=== PATIENT | female | born 1990 | race Caucasian/White ===

== ENCOUNTER → 2020-08-03 10:11 | Outpatient (BNVA) | payer MEDICAID, SELFPAY | PROVIDERS: Visit Provider Obstetrics & Gynecology | DX: N87.0 Mild cervical dysplasia (principal); Z98.890 Other specified postprocedural states | CPT/HCPCS: 99212 ==

== ENCOUNTER → 2020-09-23 12:14 | Outpatient (BNVA) | payer MEDICAID, SELFPAY | PROVIDERS: Visit Provider Obstetrics & Gynecology | DX: N87.0 Mild cervical dysplasia (principal) | CPT/HCPCS: 99212 ==

== ENCOUNTER 2020-09-25 12:27 | Outpatient (REF) | payer MEDICAID, SELFPAY ==
[2020-09-25 12:34] VITALS: BP 122/71; PULSE 98; RESP 18; TEMP 36.8; O2SAT 100; BMI 20.4
--- NOTE | 2020-09-25 12:53 | MHC.SHP ---
Pre-Procedural Eval Section A The patient is an INPATIENT: No Changes since office visit: No Cold of Flu in the past 2 weeks, No New Medical Problems, No Changes in Medication and No Patient answered all questions The History & Physical has been completed within 30 days and I have reviewed it.: Yes Section B Chief Complaint: LINDA 1 Allergies: Allergies Allergy/AdvReac Type Severity Reaction Status Date / Time amoxicillin Allergy Rash Verified 09/23/20 12:24 Plan Diagnosis/Plan: Unchanged I have reviewed the history and physical and performed a pertinent physical examination on my patient. No changes have occurred unless specified.
--- NOTE | 2020-09-25 12:54 | PM.OP ---
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
--- NOTE | 2020-09-25 15:01 | P.OP_ITS ---
Operative Note Operative Note Date of Service: 08/28/20 Narrative: Preop diagnosis: Persistent LINDA I with Negative ECC Operation: LEEP Post op diagnosis: same Anesthesia: paracervical block Complications: none Pathology: Anterior and Posterior cervical lip QBL: minimal Procedure: The patient was put in the dorsal lithotomy position, was prepped and draped in the usual sterile fashion. A sterile speculum was inserted inside the patient vagina. Using Lugol solution the cervix with Dyed with Lugol solution to identifiy the abnormal demarcating line. 10 cc of Marcaine0.5% with epinephrine were given at 2,4 , 8, and 10 o'clock. Using a medium-size loop wire, the anterior cervical lip was excised followed by the posterior cervical lip . Hemostasis was assured using cautery and Monsel solution. All instruments were taken out of the patient's vaginal cavity. the patient t olerated the procedure well and was discharged home with the following instructions: call if temperature is above 100.4, vaginal bleeding, abdominal pain or nausea or vomiting. Follow-up in the office in 2 weeks for postop visit
== END 2020-09-25 13:40 | disposition home or self-care (01) ==
LOC: HO.MS 12:27
PROVIDERS: Visit Provider Obstetrics & Gynecology
PROC: 0UBC7ZZ Excision of Cervix, Via Natural or Artificial Opening (ICD-10-PCS; CPT 57522; principal; 2020-09-25 12:30)
DX: N87.0 Mild cervical dysplasia (principal); F32.9 Major depressive disorder, single episode, unspecified; F11.20 Opioid dependence, uncomplicated; Z87.442 Personal history of urinary calculi; F17.210 Nicotine dependence, cigarettes, uncomplicated
CPT/HCPCS: 57522; 81025; 88307; 99211

== ENCOUNTER → 2020-10-08 12:30 | Outpatient (BNVA) | payer MEDICAID, SELFPAY | PROVIDERS: Visit Provider Obstetrics & Gynecology ==

== ENCOUNTER → 2020-10-12 11:19 | Outpatient (BNVA) | payer MEDICAID, SELFPAY | PROVIDERS: Visit Provider Advanced Practice Midwife ==

== ENCOUNTER → 2021-02-02 12:51 | Outpatient (BNVA) | payer MEDICAID, SELFPAY | PROVIDERS: Visit Provider Advanced Practice Midwife | DX: Z30.46 Encounter for surveillance of implantable subdermal contraceptive (principal); Z30.016 Encounter for initial prescription of transdermal patch hormonal contraceptive device | CPT/HCPCS: 11982; 99212 ==

== ENCOUNTER 2021-09-13 09:48 | Outpatient (REF) | payer MEDICAID, SELFPAY | END 2021-09-13 09:49 | disposition home or self-care (01) | LOC: HO.LAB 09:48 | PROVIDERS: Visit Provider Internal Medicine | DX: Z20.822 Contact with and (suspected) exposure to COVID-19 (principal) | CPT/HCPCS: C9803; U0003; U0005 ==

== ENCOUNTER 2022-04-29 09:37 | Outpatient (REF) | payer MEDICAID, SELFPAY ==
[2022-04-29 16:05] LABS: CT PCR NOT DETECTED (Not Detect.); NG PCR NOT DETECTED (Not Detect.)
[2022-05-05 15:21] LABS: HPV mRNA E6/E7 rflx Not Detected (Not Detected)
== END 2022-04-29 09:38 | disposition home or self-care (01) ==
LOC: HO.LAB 09:37
PROVIDERS: Visit Provider Advanced Practice Midwife
DX: Z01.419 Encounter for gynecological examination (general) (routine) without abnormal findings (principal); Z11.51 Encounter for screening for human papillomavirus (HPV); N87.0 Mild cervical dysplasia
CPT/HCPCS: 87491; 87591; 87624; 88142

== ENCOUNTER 2022-06-15 13:36 | Outpatient (REF) | payer MEDICAID, SELFPAY | END 2022-06-15 13:37 | disposition home or self-care (01) | LOC: HO.LNP 13:36 | PROVIDERS: Visit Provider Obstetrics & Gynecology | DX: R87.610 Atypical squamous cells of undetermined significance on cytologic smear of cervix (ASC-US) (principal) | CPT/HCPCS: 57454; 88305 ==

== ENCOUNTER → 2022-08-15 14:31 | Outpatient (BNVA) | payer MEDICAID, SELFPAY | PROVIDERS: Visit Provider Obstetrics & Gynecology | DX: R87.610 Atypical squamous cells of undetermined significance on cytologic smear of cervix (ASC-US) (principal) | CPT/HCPCS: 99212 ==

== ENCOUNTER 2022-11-09 18:17 | Emergency (ER) | payer MEDICAID, SELFPAY ==
[2022-11-09 18:20] VITALS: BP 101/65; PULSE 71; RESP 18; TEMP 37.1; O2SAT 100; BMI 21.9
--- NOTE | 2022-11-09 18:25 | ED.HEATRA ---
HPI - Head Injury General Chief complaint: Head Injury Stated complaint: Dizzy due to fall, hit head Time Seen by Provider: 11/09/22 18:49 Source: patient and RN notes reviewed Mode of arrival: ambulatory Limitations: no limitations History of Present Illness HPI Narrative: This is a 23-ouck-air-female presenting today for evaluation of head injury which occurred today. Patient states that her leg was asleep and hit her posterior head on the edge of her dresser after getting up from a nap this afternoon. She believes that she cut her head where she struck her head. She denies loss of consciousness. She denies any headache or visual changes. She states that she is not on blood thinners. Denies any nausea, vomiting or neck pain. She states that when she lays down, she does feel dizzy. Complaint: head injury Onset (ago): hour(s) Mechanism of Injury: fall Place: home Loss of Consciousness: no Location of injury: occipital Radiation: none Other Injuries: none Associated symptoms: denies other symptoms Related Data Home Medications Medication Instructions Recorded Confirmed buprenorphine 8 mg-naloxone 2 mg 1.5 film buccal DAILY 07/01/20 07/01/20 sublingual film (Suboxone) Previous Rx's Medication Instructions Recorded norelgestromin 150 mcg-e.estradiol 1 patch transdermal Q7D 3 weeks #3 02/02/21 35 mcg/24 hr weekly transderm ea patch (Xulane) Allergies Allergy/AdvReac Type Severity Reaction Status Date / Time amoxicillin Allergy Rash Verified 08/15/22 14:35 Review of Systems Review of Systems: Yes all other systems are reviewed and are negative PMFSH Past Medical History Medical History Depression GERD (gastroesophageal reflux disease) H/O calculus of kidney during History of drug abuse S/P extracorporeal shock wave therapy (~2008) Smoker Surgical History H/O cystoscopy (~2007) Family History Family History Father Diabetes Mother Depression Social History Social History Cigarette Packs Per Day: 0.5 Cigarettes Per Day: 10.0 Years Smoked: 3 Advance Directives: No Advance Directives Information Provided: No Physical Exam Vital Signs: Vital Signs: Last Vital Signs Temp 98.7 F 11/09/22 18:20 Pulse 71 11/09/22 18:20 Resp 18 11/09/22 18:20 BP 101/65 11/09/22 18:20 Pulse Ox 100 11/09/22 18:20 O2 Del Method 11/09/22 18:20 BMI result Body Mass Index 21.9 Appearance: Alert. Oriented X3. No acute distress. Eyes: Pupils equal, round and reactive to light. ENT: Pharynx normal. Neck: Normal inspection. Neck supple. CVS: Normal heart rate and rhythm. Pulses normal. Respiratory: No respiratory distress. Breath sounds normal. Skin: Skin warm and dry. Normal skin color. Normal skin turgor. No rashes. Extremities: No lower extremity edema. Neuro: Oriented X 3. No motor deficit. No sensory deficit. No facial droop. Strength is 5/5 in upper and lower extremities. Finger to nose, heel to redman testing in tact. Negative Romberg test. Course Course Course Narrative: JENNIE - [id number]-female who presents today for evaluation after a head injury which occurred this afternoon. Patient states that she woke up from a nap, and stood up, and she fell and struck her head on the side of the dresser. She denies any loss of consciousness. She is not on any blood thinners. She does not have a headache and feels well. VSS in triage. Patient is stable to return to the waiting room. 185 - patient seen and re-evaluated. Patient's symptoms consistent with closed injury. Because she has no headache, nausea, vomiting, visual changes. Advised to rest over the next several days and to avoid prolonged screentime. Educated on red flags of when to return including intractable head pain, nausea, vomiting, dizziness, or any other new or worsening symptoms. Patient understands and agrees with plan. Medical Decision Making Medical Decision Making MDM Narrative: Exam is consistent with mild concussion, low clinical suspicion for ICH or severe head injury. Differential Diagnosis concussion, closed head injury, hematoma, doubt ICH, subdural hematoma, External Record Review External record reviewed: Prior outpatient labs Discharge Plan Discharge Clinical Impression: Closed head injury, Concussion without loss of consciousness Patient Disposition: Home, Self-Care Instructions: Concussion (ED), Head Injury (ED) Additional Instructions: Your symptoms are consistent with a mild concussion. Drink plenty of fluids and get plenty of rest. Avoid prolonged screentime. Watch for any new or worsening symptoms including headache, dizziness, nausea, or vomiting. Follow up with your primary care physician. If any new or worsening symptoms occur, please return for re-evaluation. Prescriptions: No Action buprenorphine-naloxone [Suboxone] 8-2 mg Film 1.5 film BUCCAL DAILY Xulane 150-35 mcg/24 hr patch weekly 1 patch transdermal Q7D 21 Days Qty: 3 5RF Stand Alone Forms: Work/School Release Interventions: ED Discharge Assessment Last Done: 11/09/22 19:12 Discharge Date/Time: 11/09/22 19:13
== END 2022-11-09 19:13 | disposition home or self-care (01) ==
LOC: HO.ED 19:12
PROVIDERS: Emergency Provider Emergency Medicine; PCP General Practice
DX: S06.0X0A Concussion without loss of consciousness, initial encounter (principal); R42 Dizziness and giddiness; W01.190A Fall on same level from slipping, tripping and stumbling with subsequent striking against furniture, initial encounter; Y93.9 Activity, unspecified; Y92.9 Unspecified place or not applicable; Y99.9 Unspecified external cause status; F17.210 Nicotine dependence, cigarettes, uncomplicated; Z79.899 Other long term (current) drug therapy; Z71.6 Tobacco abuse counseling
CPT/HCPCS: 99282

== ENCOUNTER 2023-08-04 13:01 | Outpatient (REF) | payer MEDICAID, SELFPAY ==
[2023-08-11 08:53] LABS: HPV mRNA E6/E7 rflx Not Detected (Not Detected)
== END 2023-08-04 13:02 | disposition home or self-care (01) ==
LOC: HO.LNP 13:01
PROVIDERS: PCP General Practice; Visit Provider Advanced Practice Midwife
DX: Z01.419 Encounter for gynecological examination (general) (routine) without abnormal findings (principal); Z20.2 Contact with and (suspected) exposure to infections with a predominantly sexual mode of transmission
CPT/HCPCS: 87624; 88142

== ENCOUNTER 2023-08-04 13:01 | Outpatient (AMB) | payer MEDICAID, SELFPAY ==
[2023-08-04 13:11] VITALS: BP 96/52; BMI 21.3
--- NOTE | 2023-08-04 13:11 | A.OFFVIS_ITS ---
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 Scribed for ELÍAS Macedo by Yola Cain medical information specialist, on 08/04/2023 at 1:30 pm EST Director Of Health Education Required: No Information Interpreted: non-clinical & clinical Hepatology Physician: Hepatology Physician Present (Bibi Malloryroland SO) Accompanied by: Self / Same As Patient Allergies amoxicillin Allergy (Verified 08/04/23 13:15) Rash Is last menstrual period known: Yes Last menstrual period: 07/17/23 HPI HPI Comments History of Present Illness Details She is a premenopausal woman presenting for annual exam. Doing well with no biological sciences instructor concerns. She attempts to eat healthy and stay active. She reports fatigue today. Low BP at intake. Reports has not eaten yet today. Not currently sexually active. Stopped BC patch. She is interested in possibly restarting patch or other BC option. Had IUD in the past and she got with it and states it was stuck to the placenta. Regular monthly periods. Denies vaginal itching and irritation. Denies family hx of breast, colon and ovarian cancer. Last pap smear 2021, ASCUS. Admits to tobacco use. Patient denies any contraindications to control such as migraines with aura, high blood pressure, liver disease, blood clotting disorders, DVT and PE. [facility] Medical History ASCUS of cervix with negative high risk HPV Abnormal cervical Papanicolaou smear S/P extracorporeal shock wave therapy (~2008) Smoker GERD (gastroesophageal reflux disease) Depression H/O calculus of kidney during History of drug abuse Surgical History H/O cystoscopy (~2007) Family History Father Diabetes Hypertension Mother Depression Social History Household Members: Children Housing: Apartment Alcohol intake: never Patient Tobacco Use Status: Current everyday Tobacco user Cigarette Packs Per Day: 0.5 Cigarettes Per Day: 10.0 Years Smoked: 4 Current occupational status: employed Current occupation: [employer] Sexual orientation: Straight/Heterosexual Gender identity: Female Female Reproductive History Menstrual Age of Menarche: 13 Date of last menstrual period: 07/17/23 control method: patch Total pregnancies: 6 Full term: 5 Number of Living Children: 5 Ab induced: 1 Date of last pap smear: 05/02/22 History of abnormal pap smear: Yes (Ascus) Review of Systems Const All systems reviewed & are unremarkable except as noted in HPI and below Physical Exam Vital Signs: Last Vital Signs BP 96/52 L 08/04/23 13:11 BMI result Body Mass Index 21.3 Const General: cooperative, healthy appearing, no acute distress, well developed and alert Orientation/consciousness: patient oriented x3 HEENT Head: Yes normal to inspection Eyes General: appearance normal, both eyes and all related structures Neck Neck: Yes normal visual inspection Thyroid: Thyroid normal Chest Chest palpation & inspection: normal inspection of the chest Breast/axilla inspection: normal inspection of the breasts (no puckering, dimpling, peau de orange, retraction, discharge, masses) Breast/axilla palpation: normal palpation of the breasts Resp Effort & Inspection: normal respiratory effort GI Inspection: Yes normal to inspection Palpation (GI): Soft to palpation Rectal Exam - Female: deferred General: Yes bladder normal to palpation External Female Exam: normal external appearance and normal appearance of the urethra Speculum Exam - Vagina: normal appearance of the vagina, normal palpation and normal vaginal discharge Speculum Exam - Cervix: normal appearance of the cervix and normal palpation Bimanual exam- vagina & uterus: normal bimanual exam, normal palpation, uterine size normal, bladder normal to palpation and normal palpation Bimanual Exam- Adnexa, other: normal adnexae and no masses Skin General skin exam: no rashes or lesions noted Neuro General: patient oriented x3 Cognition (Neuro): normal cognition Extrem General: Yes normal to inspection Psych Attitude: cooperative Thought process: Normal thought process present Assessment & Plan Assessment & Plan (1) Encounter for well woman exam: Code(s): Z01.419 - Encounter for gynecological examination (general) (routine) without abnormal findings Plan: Discussed: Current recommendations for pap smears per ASCCP guidelines. Breast awareness and periodic self breast exams. Maintaining a healthy lifestyle including a well balanced diet with small frequent meals and routine exercise. Patient was given some crackers in the office today, and was instructed to sit in the room until she felt better prior to leaving office. Encouraged condom use for STD prevention. Recommended using Eucerin for dry spots. All of her questions and concerns were addressed to the best of my ability. RTO in one year for AG. (2) Possible exposure to STD: Code(s): Z20.2 - Contact with and (suspected) exposure to infections with a predominantly sexual mode of transmission Plan: STD screening offered; she accepts for HIV/RPR and Hepatitis testing. (3) Abnormal cervical Papanicolaou smear: Code(s): R87.619 - Unspecified abnormal cytological findings in specimens from cervix uteri Qualifiers: Abnormal Pap type: ASC-US Qualified Code(s): R87.610 - Atypical squamous cells of undetermined significance on cytologic smear of cervix (ASC- US) (4) General counselling and advice on contraception: Code(s): Z30.09 - Encounter for other general counseling and advice on contraception Plan: D/w pt the different options of control including control pills, patches, DMPA, IUD and Nexplanon. Reviewed use, warnings and side effects of each. Handout given to patient. She will think about her options and contact office with a decision. She opts to have a rx for patches to have on hand in the meantime. Rx sent to pharmacy. She was also counseled on smoking and risks with BC. She was counseled on estrogen over the age of 35. Discussed with use of estrogen and progesterone with undiagnosed breast cancer. Some breast cancer can have positive receptors for hormones that can cause to it grow aggressively and can lead to metastatic disease and possibly be life threatening.? Can start patches within the first 5 days of her menses. Can start today since she is currently on her menses. She was instructed to go to ER if she develops loss of vision, severe headache that does not resolve, chest pain, diff breathing, abdominal pain, or severe pain or tenderness in extremity. She will call the office with any concerns. Orders: Orders HIV Ab/Ag Today Z20.2 - Contact with and (suspected) exposure to infections with a predominantly sexual mode of transmission Pap Smear Today R87.610 - Atypical squamous cells of undetermined significance on cytologic smear of cervix (ASC-US) Hepatitis C Antibody Today Z20.2 - Contact with and (suspected) exposure to infections with a predominantly sexual mode of transmission Hepatitis B Core Antibody Today Z20.2 - Contact with and (suspected) exposure to infections with a predominantly sexual mode of transmission Syphilis Screen Today Z20.2 - Contact with and (suspected) exposure to infections with a predominantly sexual mode of transmission Medications: Refilled norelgestromin-ethin.estradiol 150-35 mcg/24 hr (Xulane) 1 patch transdermal Q7D 9 ea 4RF 3 weeks Coding Level of Care Code Est Pt Prev Care [id number]) Diagnoses Encounter for well woman exam Z01.419 Possible exposure to STD Z20.2 Atypical squamous cells of undetermined significance on cytologic smear of cervix (ASC-US) R87.610 Abnormal Pap type: ASC-US General counselling and advice on contraception Z30.09
== END 2023-08-04 13:55 | disposition home or self-care (01) ==
LOC: HO.HWS 13:01
PROVIDERS: PCP General Practice; Visit Provider Advanced Practice Midwife
DX: Z01.419 Encounter for gynecological examination (general) (routine) without abnormal findings (principal); Z20.2 Contact with and (suspected) exposure to infections with a predominantly sexual mode of transmission; R87.610 Atypical squamous cells of undetermined significance on cytologic smear of cervix (ASC-US); Z30.09 Encounter for other general counseling and advice on contraception
CPT/HCPCS: 99395

== ENCOUNTER 2023-08-28 06:18 | Emergency (ER) | payer MEDICAID, SELFPAY ==
--- NOTE | ~2023-08-28 | XR_ITS ---
EXAMINATION: XR CHEST CLINICAL INFORMATION: Covid 19 positive. COMPARISON: 09/21/2019 TECHNIQUE: Frontal view of the chest was obtained. FINDINGS: The lungs are well expanded. No focal consolidation. No pleural effusion. Cardiac silhouette is within normal limits. XR/XR chest 1V IMPRESSION: No acute abnormality.
[2023-08-28 06:22] VITALS: BP 126/70; PULSE 79; RESP 18; TEMP 37.2; O2SAT 100; BMI 22.0
--- NOTE | 2023-08-28 06:36 | ED_ITS ---
HPI - General Adult General Chief complaint: General Medical Stated complaint: Covid+/Chest heaviness Time Seen by Provider: 08/28/23 06:35 Source: patient, RN notes reviewed and old records reviewed Mode of arrival: ambulatory History of Present Illness HPI narrative: 32-year-old female with past medical history of GERD, depression, substance abuse currently on Suboxone, cigarette smoker presenting to the ED complaining of COVID-19 positive on home test 2 days ago you now with congestion, myalgias, chest heaviness. Reports chest heaviness is intermittent. Denies cough, fever, SOB, travel, pedal edema. 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 Related Data Home Medications Medication Instructions Recorded Confirmed buprenorphine 8 mg-naloxone 2 mg 1.5 film buccal DAILY 07/01/20 07/01/20 sublingual film (Suboxone) Previous Rx's Medication Instructions Recorded norelgestromin 150 mcg-e.estradiol 1 patch transdermal Q7D 3 weeks #9 08/04/23 35 mcg/24 hr weekly transderm ea patch (Xulane) nirmatrelvir 300 mg (150 mg See Rx Instructions PO .COMPLEX 08/28/23 x2)-ritonavir 100 mg tablet,dose #30 ea pack (Paxlovid) Allergies Allergy/AdvReac Type Severity Reaction Status Date / Time amoxicillin Allergy Rash Verified 08/28/23 06:26 Review of Systems Review of Systems: Constitutional: No Fever, No Chills ENT/Mouth: No Ear Pain, No Nasal Congestion, No sore throat, No Rhinorrhea, No Swallowing Difficulty Cardiovascular: + Chest tightness, No SOB Respiratory: No Cough, No Sputum, No Wheezing Gastrointestinal: No Nausea, No Vomiting,No Abdominal pain Musculoskeletal: No joint pain, + Myalgias, No Joint Swelling Skin: No Skin Lesions, No rash Neuro: No Weakness, No Numbness, No Paresthesias Yes all other systems are reviewed and are negative Constitutional: Constitutional: Reports as per [facility] Past Medical History Attestation statement: The following information was validated with the patient. Source: old records reviewed Medical History ASCUS of cervix with negative high risk HPV Abnormal cervical Papanicolaou smear S/P extracorporeal shock wave therapy (~2008) Smoker GERD (gastroesophageal reflux disease) Depression H/O calculus of kidney during History of drug abuse Surgical History H/O cystoscopy (~2007) Family History Family History Father Diabetes Hypertension Mother Depression Social History Social History Household Members: Children Housing: Apartment Alcohol intake: never Patient Tobacco Use Status: Current everyday Tobacco user Cigarette Packs Per Day: 0.5 Cigarettes Per Day: 10.0 Years Smoked: 4 Advance Directives: No Advance Directives Information Provided: No Current occupational status: employed Current occupation: HOUSEKEEPER SUPERVISOR Sexual orientation: Straight/Heterosexual Gender identity: Female Physical Exam ED Vital Signs: Vital Signs - 24 hr 08/28/23 06:22 08/28/23 07:18 Temperature 99 F Pulse Rate 79 70 Respiratory Rate 18 12 Blood Pressure 126/70 103/65 Pulse Oximetry 100 100 Oxygen Delivery Method Room Air Room Air BMI result Body Mass Index 22.0 Const General: cooperative, healthy appearing and no acute distress Orientation/consciousness: patient oriented x3 Limitations: no limitations HENMT Head: Yes normal to inspection and Yes atraumatic Ears: hearing grossly normal bilaterally General nose exam: Normal external nose present Face and sinus: Yes normal facial exam Eyes General: appearance normal, both eyes and all related structures EOM: EOMs intact bilaterally Neck Neck: Yes normal visual inspection and Yes no meningeal signs Resp Effort & Inspection: normal respiratory effort and no respiratory distress Auscultation: clear to auscultation bilaterally, no rales, no rhonchi and no wheezes Cardio Rate: regular rate Heart sounds: S1 normal heart sound present and S2 normal heart sound present GI Inspection: Yes normal to inspection Palpation (GI): Soft to palpation, nontender, no guarding and not rigid Skin Rashes: no rashes Wounds: no wounds Neuro General: patient oriented x3, tone normal and no meningeal signs Cranial nerves: Yes CN's II-XII intact bilaterally Gait exam (Neuro): Normal gait present Extrem General: Yes normal to inspection Course Course Course Narrative: 912--XR chest 1V IMPRESSION: No acute abnormality. > results discussed with patient. Patient requesting Paxlovid. Discussed risks of taking medication and multiple drug interactions, patient verbalized understandign & would still like prescription. Recommended close follow-up with PCP -Results discussed with patient including worrisome signs and symptoms and strict return precautions, and when to return to the emergency department. They verbalized understanding and feel safe for discharge at this time. Medical Decision Making Medical Decision Making [facility] Narrative: 32-year-old female with past medical history of GERD, depression, substance abuse currently on Suboxone, cigarette smoker presenting to the ED complaining of COVID-19 positive on home test 2 days ago you now with congestion, myalgias, chest heaviness. On exam vital signs stable, NAD, nontoxic appearing, physical exam as noted above. Concern for viral illness/COVID-19. Lower suspicion for pneumonia/bronchitis, ACS or PE Plan: EKG, CXR, reassurance Please refer to course for remaining clinical decision making, interpretation of labs/imaging results, and discussions with consultants and/or family members. Differential Diagnosis Differential Diagnoses: The differential diagnosis associated with the presentation includes As above Admission/Observation Consideration of admission/observation: Escalation of care including admission/observation considered Lab Data [facility] Lab Attestation statement: I reviewed the patient's lab results. Independent Interpretation I performed an independent interpretation of an: EKG (My interpretation EKG normal sinus rhythm rate of 76. CA interval 160. QTC 434. No significant change when compared to prior) and Plain X-Ray Radiology Impression Discussion of test interpretation with radiology: I have reviewed the radiologist's reading. External Record Review External record reviewed: Inpatient record, Office record, Outpatient record, Prior outpatient labs, Prior outpatient radiology, Primary care record and Outside ED record Tests considered The following testing was considered but not selected: As above Prescription Management I considered prescription management with: Pain Medication and Antiviral Discharge Plan Discharge Clinical Impression: COVID-19 Patient Disposition: Home, Self-Care Instructions: COVID-19 (Coronavirus Disease 2019) (ED) Additional Instructions: YOU HAVE COVID-19 PAXLOVID CAN INCREASE BLOOD LEVELS OF YOUR SUBOXONE WHICH CAN MAKE YOU DROWSY, DIZZY, LIGHTHEADED AND HAD DIFFICULTY CONCENTRATING. IF YOU FEEL FAINT, INCREASINGLY LETHARGIC PLEASE RETURN TO THE ED IMMEDIATELY AND STOP MEDICATION. At this time you will be okay for discharge. Please self isolate for 5 days. Do not expose yourself to others. You may not go to work or school. Please continue to follow cold instructions and wash your hands frequently. You may take Tylenol / Motrin as directed on the bottle for pain or fever. If you have constant or persistent shortness of breath, fever unresolved with medications, chest pain, or your unable to eat or drink please return to the ED CDC Guidelines for home isolation: - Stay away from others - WEAR A MASK if you are sick AND STAY HOME - Cover your mouth and nose with a tissue when you cough or sneeze. Dispose of tissues in a lined trash can and wash your hands immediately with soap and water for at least 20 seconds. If soap and water are not available, clean hands with alcohol-based hand sports health club membership advisors that contains at least 60% alcohol. - Clean your hands often with soap and water for at least 20 seconds - Avoid touching your eyes, nose and mouth with unwashed hands - Do not share dishes, drinking glasses, cups, eating utensils, towels, or bedding with other people in your home. After using these items, wash them thoroughly with soap and water or put in the hardware sales assistant. - Clean high-touch surfaces in your isolation area ( sick room and bathroom) every day; let a caregiver clean and disinfect high-touch surfaces in other areas of the home. Clean the area or item with soap and water or another detergent if it is dirty. Then, use a household disinfectant. - Limit contact with pets and animals: If you must care for a pet, wash your hands before and after interacting with them) Prescriptions: New Paxlovid 300 mg (150 mg x 2)-100 mg tablets,dose pack See Rx Instructions .ROUTE .COMPLEX Qty: 30 0RF Rx Instructions: take TWO 150 mg tablets of nirmatrelvir with ONE 100 mg tablet of ritonavir twice daily for 5 days No Action buprenorphine-naloxone [Suboxone] 8-2 mg Film 1.5 film BUCCAL DAILY Xulane 150-35 mcg/24 hr patch weekly 1 patch transdermal Q7D 21 Days Qty: 9 4RF Referrals: Suzy Mondragon MD [Primary Care Provider] - Stand Alone Forms: Work/School Release
--- NOTE | 2023-08-28 06:44 | ECG_ITS ---
Test Reason : CHEST PX Blood Pressure : / mmHG Vent. Rate : 076 BPM Atrial Rate : 076 BPM P-R Int : 160 ms QRS Dur : 088 ms QT Int : 386 ms P-R-T Axes : 062 047 048 degrees QTc Int : 434 ms Normal sinus rhythm Normal ECG When compared with ECG of 18-MAR-2020 02:40, No significant change was found Referred By: Samina Daniels Electronically Signed By:Burton Leon
[2023-08-28 07:18] VITALS: BP 103/65; PULSE 70; RESP 12; O2SAT 100
[2023-08-28 09:48] VITALS: BP 112/72; PULSE 65; RESP 18; O2SAT 97
--- NOTE | 2023-08-28 09:52 | PC.NURSE ---
PT CLEARED FOR DISCHARGE. DISCHARGE INSTRUCTIONS REVIEWED WITH PT. DENIES PAIN, VSS.
== END 2023-08-28 09:52 | disposition home or self-care (01) ==
PROVIDERS: Emergency Provider Student in an Organized Health Care Education/Training Program; PCP General Practice
DX: U07.1 COVID-19 (principal); F11.20 Opioid dependence, uncomplicated; F17.210 Nicotine dependence, cigarettes, uncomplicated
CPT/HCPCS: 71045; 93005; 99283; 99284

== ENCOUNTER → 2023-08-28 06:44 | Outpatient (BNV) | payer MEDICAID, SELFPAY | PROVIDERS: Emergency Provider Student in an Organized Health Care Education/Training Program; PCP General Practice; Visit Provider Internal Medicine Cardiovascular Disease | DX: R07.9 Chest pain, unspecified (principal) | CPT/HCPCS: 93010 ==

== ENCOUNTER 2023-12-21 20:08 | Emergency (ER) | payer MEDICAID, SELFPAY ==
[2023-12-21 20:20] VITALS: BP 144/81; PULSE 69; RESP 16; TEMP 36.7; O2SAT 98; BMI 23.2
--- NOTE | 2023-12-21 20:21 | ED_ITS ---
HPI - General Adult General Chief complaint: General Medical Stated complaint: dizziness Time Seen by Provider: 12/21/23 23:04 Source: patient Mode of arrival: ambulatory Limitations: no limitations History of Present Illness HPI narrative: Patient complaining of muffled voice body aches running nose since yesterday feels lightheaded no pain in the throat no fever no chills no cough Related Data Home Medications ?Medication ?Instructions ?Recorded ?Confirmed buprenorphine 8 mg-naloxone 2 mg 1.5 film buccal DAILY 07/01/20 07/01/20 sublingual film (Suboxone) Previous Rx's ?Medication ?Instructions ?Recorded norelgestromin 150 mcg-e.estradiol 1 patch transdermal Q7D 3 weeks #9 08/04/23 35 mcg/24 hr weekly transderm ea patch (Xulane) nirmatrelvir 300 mg (150 mg See Rx Instructions PO .COMPLEX 08/28/23 x2)-ritonavir 100 mg tablet,dose #30 ea pack (Paxlovid) azithromycin 250 mg tablet 250 mg PO DAILY 4 days #4 tabs 12/21/23 (Zithromax) Allergies Allergy/AdvReac Type Severity Reaction Status Date / Time amoxicillin Allergy Rash Verified 12/21/23 20:22 Review of Systems 2 Review of Systems: Yes all other systems are reviewed and are negative PMFSH Past Medical History Medical History ASCUS of cervix with negative high risk HPV Abnormal cervical Papanicolaou smear S/P extracorporeal shock wave therapy (~2008) Smoker GERD (gastroesophageal reflux disease) Depression H/O calculus of kidney during History of drug abuse Surgical History H/O cystoscopy (~2007) Family History Family History Father Diabetes Hypertension Mother Depression Social History Social History Household Members: Children Housing: Apartment Alcohol intake: never Patient Tobacco Use Status: Current everyday Tobacco user Cigarette Packs Per Day: 0.5 Cigarettes Per Day: 10.0 Years Smoked: 4 Advance Directives: No Advance Directives Information Provided: No Current occupational status: employed Current occupation: TOUR LEADER Sexual orientation: Straight/Heterosexual Gender identity: Female Physical Exam ED Vital Signs: Vital Signs - 24 hr 12/21/23 20:20 12/21/23 22:31 Temperature 98.0 F 98.1 F Pulse Rate 69 68 Respiratory Rate 16 18 Blood Pressure 144/81 H 146/80 H Pulse Oximetry 98 98 Oxygen Delivery Method Room Air Room Air BMI result Body Mass Index 23.2 Appearance: Alert. Oriented X3. No acute distress. Orthostatics normal ENT: Pharynx normal. Oral Mucosa moist muffled voice Neck: Normal inspection. Neck supple. CVS: Normal heart rate and rhythm. Pulses normal. Respiratory: No respiratory distress. Equal air entry bilateral, no wheezing/rales/rhonchi Skin: Skin warm and dry. Normal skin color. Normal skin turgor. Extremities: No lower extremity edema. Neuro: Oriented X 3. Course Course Course Narrative: RME:?33 yo female here for eval of constant left flank pain x 1.5 days. endorses light headedness and headache that began while at the movies yesterday. denies fever, chills, N/V, diarrhea, dysuria, hematuria. labs, viral swabs, UA ordered. Full HPI, ROS and PE to be performed by the primary ED provider. Medical Decision Making Medical Decision Making [facility] Narrative: Patient has acute pharyngitis will prescribe Zithromax Differential Diagnosis Differential Diagnoses: The differential diagnosis associated with the presentation includes Laryngitis/pharyngitis/URI Lab Data [facility] Lab Attestation statement: I reviewed the patient's lab results. 12/21/23 20:28 12/21/23 20:28 Labs: Lab Results 12/21/23 Range/Units 20:28 WBC 4.3 L (4.8-10.8) X10*3/uL RBC 4.66 (4.20-5.50) X10*6/uL Hgb 12.7 (12.0-16.0) g/dl Hct 40.3 (37.0-47.0) % MCV 86.5 (80.0-98.0) fL MCH 27.3 (27.0-33.0) pg MCHC 31.5 (31.0-35.0) g/dl RDW 13.3 (11.0-16.0) % Plt Count 259 (160-400) X10*3/uL MPV 9.7 (9.4-12.3) fL Immature Gran % (Auto) 0.0 (0.0-0.4) % Neut % (Auto) 45.7 (45-73) % Lymph % (Auto) 43.5 H (20-40) % [place] % (Auto) 7.6 (2-11) % Eos % (Auto) 2.5 (0-4) % Baso % (Auto) 0.7 (0-2) % Lymph # (Auto) 1.9 (1.2-4.9) X10*3/uL [place] # (Auto) 0.3 (0.1-1.2) X10*3/uL Eos # (Auto) 0.1 (0.0-0.4) X10*3/uL Baso # (Auto) 0.0 (0.0-0.2) X10*3/uL Abs Immat Gran (auto) 0.00 (0.00-0.03) X10*3/uL Absolute Neuts (auto) 2.0 (2.0-8.3) x10*3/uL Absolute Nucleated RBC 0.000 (0.0-0.012) X10*3/uL Nucleated RBC % (auto) 0.0 (0.0-0.2) /100WBC Sodium 141 (135-145) mmol/L Potassium 3.7 (3.3-5.1) mmol/L Chloride 107 (96-108) mmol/L Carbon Dioxide 26 (22-29) mmol/L Anion Gap 12 (12-20) BUN 9 (9-16) mg/dL Creatinine 0.73 (0.5-1.4) mg/dL Estim Creat Clear Calc 93.8 Estimated GFR > 60 Random Glucose 94 (60-115) mg/dL Calcium 9.5 (8.4-10.2) mg/dL Total Bilirubin 0.4 (0.0-1.0) mg/dL AST 15 (5-31) U/L ALT 9 (0-31) U/L Alkaline Phosphatase 51 (39-117) U/L Total Protein 8.1 H (6.5-8.0) g/dL Albumin 4.4 (3.5-5.0) g/dL Urine Color Yellow Urine Appearance Clear Urine pH 7.0 (5.0-9.0) Ur Specific [place] 1.025 (1.005-1.025) Urine Protein Negative (Neg-Trace) mg/dL Urine Glucose (UA) Negative (Negative) mg/dL Urine Ketones Negative (Negative) mg/dL Urine Blood Negative (Negative) Urine Nitrite Negative (Negative) Ur Leukocyte Esterase Negative (Negative) Urine Test NEGATIVE (NEGATIVE) Influenza Type A (PCR) NEGATIVE (Negative) Influenza Type B (PCR) NEGATIVE (Negative) RSV RNA Qual (PCR) NEGATIVE (Negative) SARS-CoV-2 RNA (RT-PCR) NEGATIVE (Negative) Discharge Plan Discharge Clinical Impression: Acute laryngitis Patient Disposition: Home, Self-Care Instructions: Laryngitis (ED) Additional Instructions: Drink plenty of fluid Antibiotic as prescribed Your COVID flu and RSV negative Prescriptions: New azithromycin [Zithromax] 250 mg tablet 250 mg PO DAILY 4 Days Qty: 4 0RF Rx Instructions: start on day 2 of therapy No Action buprenorphine-naloxone [Suboxone] 8-2 mg Film 1.5 film BUCCAL DAILY Paxlovid 300 mg (150 mg x 2)-100 mg tablets,dose pack See Rx Instructions .ROUTE .COMPLEX Qty: 30 0RF Rx Instructions: take TWO 150 mg tablets of nirmatrelvir with ONE 100 mg tablet of ritonavir twice daily for 5 days Xulane 150-35 mcg/24 hr patch weekly 1 patch transdermal Q7D 21 Days Qty: 9 4RF Print Language: Mongolian
[2023-12-21 20:39] LABS: MANUAL DIFF FLAG NO
[2023-12-21 20:41] LABS: Basophils Percent Auto 0.7 % (0-2); Eosinophils Absolute Auto 0.1 X10*3/uL (0.0-0.4); Eosinophils Percent Auto 2.5 % (0-4); Hematocrit 40.3 % (37.0-47.0); Hemoglobin 12.7 g/dl (12.0-16.0); Lymphocytes Absolute Auto 1.9 X10*3/uL (1.2-4.9); Lymphocytes Percent Auto 43.5 % (20-40); Mean Corpuscular HGB Conc 31.5 g/dl (31.0-35.0); Mean Corpuscular Hemoglobin 27.3 pg (27.0-33.0); Mean Corpuscular Volume 86.5 fL (80.0-98.0); Mean Platelet Volume 9.7 fL (9.4-12.3); Monocytes Absolute Auto 0.3 X10*3/uL (0.1-1.2); Monocytes Percent Auto 7.6 % (2-11); Neutrophils Percent Auto 45.7 % (45-73); Platelet Count 259 X10*3/uL (160-400); Red Blood Count 4.66 X10*6/uL (4.20-5.50); Red Cell Distribution Width 13.3 % (11.0-16.0); White Blood Count 4.3 X10*3/uL (4.8-10.8)
[2023-12-21 20:42] LABS: Appearance Urine Clear; Color Urine Yellow; Glucose Urine UA Negative (Negative); Leukocyte Esterase Urine Negative (Negative); Nitrite Urine Negative (Negative); Specific Gravity - Urine 1.025 (1.005-1.025); UPreg QC Valid YES; Urine Blood Negative (Negative); Urine Ketones Negative (Negative); Urine Pregnancy NEGATIVE (NEGATIVE); Urine Protein Negative (Neg-Trace)
[2023-12-21 20:53] LABS: Alanine Aminotransferase 9 U/L (0-31); Albumin Level 4.4 g/dL (3.5-5.0); Alkaline Phosphatase 51 U/L (39-117); Anion Gap 12 (12-20); Aspartate Amino Transferase 15 U/L (5-31); Bilirubin Total 0.4 mg/dL (0.0-1.0); Blood Urea Nitrogen 9 mg/dL (9-16); Calcium 9.5 mg/dL (8.4-10.2); Carbon Dioxide 26 mmol/L (22-29); Chloride 107 mmol/L (96-108); Creatinine Clr Calc Pharmacy 93.8; Estimated Glomerular Filt Rate > 60; Glucose Random 94 mg/dL (60-115); Potassium 3.7 mmol/L (3.3-5.1); Sodium 141 mmol/L (135-145); Total Protein 8.1 g/dL (6.5-8.0)
[2023-12-21 21:17] LABS: Influenza A PCR NEGATIVE (Negative); Influenza B PCR NEGATIVE (Negative); Resp Syncy Virus RNA Qual PCR NEGATIVE (Negative); SARS COV2 PCR INHOUSE NEGATIVE (Negative)
[2023-12-21 22:31] VITALS: BP 146/80; PULSE 68; RESP 18; TEMP 36.7; O2SAT 98
[2023-12-21 23:31] VITALS: BP 105/61; PULSE 56
[2023-12-21 23:33] VITALS: BP 116/73; PULSE 63
[2023-12-21 23:35] VITALS: BP 106/71; PULSE 69
[2023-12-21] MEDS: Azithromycin 500 MG TABLET PO (23:45)
[2023-12-21 23:47] VITALS: BP 106/71; PULSE 69; RESP 16; TEMP 36.7; O2SAT 98
== END 2023-12-21 23:50 | disposition home or self-care (01) ==
PROVIDERS: Physician Assistant Medical; Emergency Provider Internal Medicine; PCP General Practice
DX: J04.0 Acute laryngitis (principal); R42 Dizziness and giddiness; Z79.899 Other long term (current) drug therapy; Z11.52 Encounter for screening for COVID-19; Z20.822 Contact with and (suspected) exposure to COVID-19
CPT/HCPCS: 0241U; 80053; 81003; 81025; 85025; 99283; 99284

== ENCOUNTER 2025-08-19 16:10 | Outpatient (REF) | payer MEDICAID, SELFPAY ==
--- OUTSIDE RECORDS SUMMARY | 2025-08-19 11:45 | XMS_ITS | Encounter Summary ---
Author Organization [employer] Address [address] [place] [address] [address] [place] [address] Care Team Providers Care Tenter Feeder Name Role Phone Suzy Mondragon MD Primary Care Provider [phone] Encounter Details Date Type Department Care Team (Late st Contact Info) Description 08/19/2025 11:45 AM EST Office Visit [facility] [address] [place] [address] Norah Roy MD [address] [place] [address] Acute cystitis with hematuria (Primary Dx); Dysuria; Urinary frequency Social History Tobacco Use Types Packs/Day Years Used Date Smoking Tobacco: Every Day Cigarettes Passive Smoke Exposure: Current Smokeless Tobacco: Never Alcohol Use Standard Drinks/Week Comments Not Currently 0 (1 standard drink = 0.6 oz pur e alcohol) Comments Unknown Sex and Gender Information Value Date Recorded Sex Assigned at Female 07/18/2022 10:15 AM EDT Legal Sex Female 10:15 AM EDT Gender Identity Female 07/18/2022 10:15 AM EDT Sexual Orientation Straight 07/18/2022 10 :15 AM EDT documented as of this encounter Last Filed Vital Signs Vital Sign Reading Time Taken Comments Blood Pressure 116/60 08/19/2025 12:24 PM EST Pulse 70 08/19/2025 12:24 PM EST Temperature 36.1 C (97 F) 08/19/2025 12:24 PM EST Respiratory Rate 16 08/19/2025 12:24 PM EST Oxygen Saturation - - Inhaled Oxygen Concentration - - Weight 56.5 kg (124 lb 9.6 oz) 08/19/2025 12:24 PM EST Height 162.6 cm (5' 4 ) 08/19/2025 12:24 PM EST Body Mass Index 21.39 08/19/2025 12:24 PM EST documented in this encounter Plan of Treatment Upcoming Encounters Date Type Department Care Team (Late st Contact Info) Description 10/02/2025 3:00 PM EST Office Visit [facility] [address] [place] [address] Terri Montague MD [address] [place] [address] Scheduled Orders Name Type Priority Associated Diagnoses Orde r Schedule Chlamydia/N. Gonorrhoeae RNA, TMA, Vaginal Microbiology Routine Acute cystitis with hematuria Dysuria Ordered: 08/19/2025 Bacterial Vaginosis Panel Microbiology Routine Acute cystitis with hematuria Dysuria Ordered: 08/19/2025 Culture, Urine, Routine Microbiology Routine Acute cystitis with hematuria Dysuria Ordered: 08/19/2025 documented as of this encounter Goals Goal Patient Goal Type Associated Problems Recent Progress Patient-Stated? Author Keep your medical appointments Lifestyle No Baljeet Mcpherson, RN documented as of this encounter Procedures Procedure Name Priority Date/Time Associated Diagnosis Comments POCT URINALYSIS DIPSTICK Routine 08/19/2025 1:37 PM EST Dysuria Urinary frequency documented in this encounter Results * (ABNORMAL) POCT Urinalysis (08/19/2025 1:37 PM EST) Color, UA Yellow Clarity, UA Clear Glucose, UA Negative Bilirubin, UA Negative Ketones, UA Negative Spec Grav, UA 1.025 Blood, UA Positive(A) Negative, None Detected Comment:large pH, UA 7.0 Protein, UA Many Comment:>=300 mg/dL Urobilinogen, UA 0.2 Leukocytes, UA Trace Negative, Rare, Trace, 1+ (17), 2+ (35), 3+ (70), Trace (15) Comment:small Nitrite, UA Negative Negative, None Detected Appearance, UA clear QC Media Lot # [id number] Lot# Expiration Date Urine (Urine, Random) 08/19/2025 1:37 PM EST Norah Roy MD POINT OF CARE TEST ENTER /EDIT ORDERABLES Final Result documented in this encounter Visit Diagnoses Diagnosis Acute cystitis with hematuria- Primary Dysuria Urinary frequency documented in this encounter Care Teams Tenter Feeder Relationship Specialty Start Date End Date Suzy Mondragon MD [address] [place] [id number] PCP - General Family Medicine 04/09/21 documented as of this encounter
--- OUTSIDE RECORDS SUMMARY | 2025-08-19 17:16 | XMS_ITS | Encounter Summary ---
Author Organization [employer] [facility] Address [address] [place] [id number] Care Team Providers Care Enterprise Systems Administrator Name Role Phone Suzy Mondragon MD Primary Care Provider [phone] Reason for Visit * Reason Comments Med Refill Encounter Details Date Type Department Care Team (Late st Contact Info) Description 11/09/2023 Refill [facility] [address] [place] [id number] Terri Montague MD [address] [place] [id number] Uncomplicated opioid dependence (CMS/HCC) Social History Tobacco Use Types Packs/Day Years Used Date Smoking Tobacco: Never Assessed Comments Unknown Sex and Gender Information Value Date Recorded Sex Assigned at Female 07/18/2022 10:15 AM EDT Legal Sex Female 10:15 AM EDT Gender Identity Female 07/18/2022 10:15 AM EDT Sexual Orientation Straight 07/18/2022 10 :15 AM EDT documented as of this encounter Plan of Treatment Upcoming Encounters Date Type Department Care Team (Late st Contact Info) Description 10/02/2025 3:00 PM EST Office Visit [facility] [address] [place] [phone] Terri Montague MD [address] [place] [address] documented as of this encounter Visit Diagnoses Diagnosis Uncomplicated opioid dependence (CMS/HCC) (HCC) documented in this encounter Care Teams Enterprise Systems Administrator Relationship Specialty Start Date End Date Suzy Mondragon MD [address] [place] [address] PCP - General Family Medicine 04/09/21 documented as of this encounter
--- OUTSIDE RECORDS SUMMARY | 2025-08-19 17:16 | XMS_ITS | Encounter Summary ---
Author Organization [employer] Address [address] [place] [address] Care Team Providers Care Sieve Repairer Name Role Phone Suzy Mondragon MD Primary Care Provider [phone] Reason for Visit * Reason Onset Date Comments Nurse Triage 08/18/2025 Encounter Details Date Type Department Care Team ([facility] st Contact Info) Description 08/18/2025 Telephone [facility] [address] [place] [address] Suzy Mondragon MD [address] [place] [address] Nurse Triage Social History Tobacco Use Types Packs/Day Years [...] AM EDT documented as of this encounter Miscellaneous Notes * Telephone Encounter - Patricia Kaur RN - 08/18/2025 1:58 PM EST TC placed to patient [phone] in regards to below message. Patient reports she developed UTI s/s on Monday. Patient reports foul odor, increased frequency, low back pain, difficulty initiating urinary stream, nocturia and post-void dribbling. Patient denies any fevers. Patient reports she purchased and an OTC UTI test kit at [facility] which was positive for UTI. Patient would like PCP to send rahat the pharmacy. Patient advised she would need to be seen in office and have urine tested in office to be treated for UTI. Patient verbalized understanding and accepted an appt for tomorrow 08/19/25 at 11:45am. Patient to f/u PRN. Protocol Used: Urinary Symptoms (Adult) Protocol-Based Disposition: See in Office or Video Visit Today Video visit offer not recorded Positive Triage Questions: * Side (flank) or lower back pain present * Bad or foul-smelling urine * Urinating more frequently than usual (i.e., frequency) OR new-onset of the feeling of an urgent need to urinate (i.e., urgency) * Patient wants to be seen * Urination is difficult to start (i.e., hesitancy) or straining * Dribbling (losing urine) just after finishing urination (i.e., post-void dribbling) * Has to get out of bed to urinate > 2 times a night (i.e., nocturia) * All higher-acuity triage questions were negative. Care Advice Discussed: * Reasons To Call Back - Fever occurs - Unable to urinate and bladder feels full - You become worse * Telephone Encounter - Stone Orta - 08/18/2025 1:32 PM EST Symptom: Urine Symptoms Outcome: Schedule a same-day appointment or talk to a nurse or provider today Reason: Caller denied all higher acuity questions The caller accepted this outcome. documented in this encounter Plan of Treatment Upcoming Encounters Date Type Department Care Team (Late st Contact Info) Description 10/02/2025 3:00 PM EST Office Visit [facility] MED[facility]INE [address] [place] [address] [phone] Terri Montague MD [address] [place], [place] [phone] documented as of this encounter Goals Goal Patient Goal Type Associated Problems Recent Progress Patient-Stated? Author Keep your medical appointments Lifestyle No Baljeet Mcpherson RN documented as of this encounter Visit Diagnoses Not on filedocumented in this encounter Care Teams Sieve Repairer Relationship Specialty Start Date End Date Suzy Mondragon MD [address] [place] [address] [place] [id number] PCP - General Family Medicine 04/09/21 documented as of this encounter
--- OUTSIDE RECORDS SUMMARY | 2025-08-19 17:16 | XMS_ITS | Clinical Summary ---
Author Organization [employer] Address [address] [facility] 7t [place] [address] Care Team Providers Care Landscape Supervisor Name Role Phone Suzy Mondragon MD Primary Care Provider [phone] Allergies Active Allergy Reactions Criticality Noted Date Comments Bupropion 08/15/2011 Other reaction(s): Hives / Skin Rash Medications * This document contains information received from the source organization and may not represent a complete record from that organization. omeprazole (PriLOSEC) [address] capsule Take 1 capsule by mouth at bed time. 01/03/20 20 Active fluticasone (Flonase Allergy Relief) 50 MCG/ACT nasal spray Administer 1-2 sprays into affected nostril(s) at bed time. 01/03/20 20 Active Vit-Fe Fumarate-FA ( Vitamins) 28-0.8 MG tablet Take 1 tablet by mouth in the morning. 07/19/20 21 Active famotidine (Pepcid) 20 MG tablet Take 1 tablet by mouth every 12 (twelve) hours. 02/29/20 20 Active Zafemy 150-35 MCG/24HR APPLY 1 PATCH TRANSDERMALLY EVERY 7 DAYS FOR 3 [id number] 08/07/20 23 Active Buprenorphine HCl-Naloxone HCl (Suboxone) 8-2 MG SL filmIndicatio ns:Uncomplica vikki opioid dependence (CMS/HCC) (HCC) Place 3 Film under the tongue Once per day. 84 Film 1 5 4:19 PM EST 07/29/20 25 2025 Active sulfamethoxaz ole-trimethop rim (Bactrim DS) 800-160 MG tablet Take 1 tablet by mouth 2 times daily for 5 days. 10 tablet 08/19/20 25 2024 Active Buprenorphine HCl-Naloxone HCl (Suboxone) 8-2 MG SL filmIndicatio ns:Uncomplica vikki opioid dependence ([facility]) ([facility]) Place 3 Film under the tongue Once per day. 84 Film 1 06/05/20 25 2024 Discontinued(R eorder (will not trigger notification to Pharmacy)) Active Problems Problem Noted Date Diagnosed Date Acute cystitis with hematuria 08/19/2025 Gastroesophageal reflux disease 05/19/2021 Mixed anxiety and depressive disorder 11/20/2013 Opioid dependence 07/02/2012 Encounters Date Type Department Care Team Description 08/19/2025 11:45 AM EST Office Visit [facility] [address] [place] [address] Norah oRy MD Acute cystitis with hematuria (Primary Dx); Dysuria; Urinary frequency 08/19/2025 Travel 08/18/2025 Telephone [facility] [address] [place] [address] Suzy Mondragon MD Nurse Triage 07/29/2025 Refill [facility] [address] [place] [address] Terri Montague MD Uncomplicated opioid dependence ([facility]) ([facility]) 07/04/2025 Orders Only [facility] [address] [place] [address] Suzy Mondragon MD Corneal abrasion, unspecified laterality, initial encounter (Primary Dx); Foreign body in eye, unspecified laterality, initial encounter 07/02/2025 Telephone [facility] [address] [place] [address] Suzy Mondragon MD Referral 06/05/2025 Refill [facility] [address] [place] [address] Terri Montague MD Uncomplicated opioid dependence ([facility]) 06/04/2025 Refill [facility] [address] [place] [address] Terri Montague MD Uncomplicated opioid dependence ([facility]) from Last 3 Months Immunizations Immunization Administration Dates Next Due DTaP 07/05/2013, 4,12/26/1990,06/29,03/22/1990 Hep A, Adult 12/04/2013,05/09/2012 Hep B, Adolescent or Pediatric 07/14/2005,2004,06/17/2003 IPV 02/03/1994, 1,06/29/1990,03/22 Influenza Injectable Quadriv alant Preservative Free IIV4 MDCK 05/26/2017 Influenza injectable quadriv alent IIV4 with preservative 06/06/2019,07/17/2018 Influenza, IIV3, injectable 07/06/2013 MMR 05/10/1995,02/03/1994 Moderna Covid-19 Vaccine 12+ 08/26/2021,01/29/20 21,12/29/2020 Pneumococcal Polysaccharide PPSV23 11/17/2014 TD (adult), 2 Lf tetanus tox oid, preservative free, adsorbed 06/17/2003 Tdap 07/04/2012 Varicella 07/19/2021,11/18/1996 Social History Tobacco Use Types Packs/Day Years Used Date Smoking Tobacco: Every Day Cigarettes Passive Smoke Exposure: Current Smokeless Tobacco: Never Tobacco Cessation:Ready to Q uit: Not Asked; Counseling Given: Not Answered Alcohol Use Standard Drinks/Week Comments Not Currently 0 (1 standard drink = 0.6 oz pur e alcohol) Comments Unknown Sex and Gender Information Value Date Recorded Sex Assigned at Female 07/18/2022 10:15 AM EDT Legal Sex Female 10:15 AM EDT Gender Identity Female 07/18/2022 10:15 AM EDT Sexual Orientation Straight 07/18/2022 10 :15 AM EDT Last Filed Vital Signs Vital Sign Reading Time Taken Comments Blood Pressure 116/60 08/19/2025 12:24 PM EST Pulse 70 08/19/2025 12:24 PM EST Temperature 36.1 C (97 F) 08/19/2025 12:24 PM EST Respiratory Rate 16 08/19/2025 12:24 PM EST Oxygen Saturation 100% 11/27/2023 10:30 AM EDT Inhaled Oxygen Concentration - - Weight 56.5 kg (124 lb 9.6 oz) 08/19/2025 12:24 PM EST Height 162.6 cm (5' 4 ) 08/19/2025 12:24 PM EST Body Mass Index 21.39 08/19/2025 12:24 PM EST Plan of Treatment Upcoming Encounters Date Type Department Care Team (Late st Contact Info) Description 10/02/2025 3:00 PM EST Office Visit [facility] [address] [place] [address] Terri Montague MD [address] [place] [address] Health Maintenance Due Date Last Done Comments Depression Screening 1989 SDOH Screening 1989 Disability Screening 1989 Alcohol/Substance Use Screening 2001 Family Planning (PISQ) 2004 HPV Vaccines (1 - 3-dose series) 2004 Pneumococcal Vaccine: Pediatrics (0 to 5 Years) and At-Risk Patients (6 to 49) Years (2 of 2 - PCV) 11/18/2015 11/17/2014 DTaP/Tdap/Td Vaccines (7 - Td or Tdap) 07/05/2023 07/05/2013, 07/04/2012, 06/17/2003, Additional history exists Cervical Cancer Screening 08/04/2024 HPV/Cotest 08/04/2024 08/04/2023, 04/18, 04/29/2022, Additional history exists Pap Smear 08/04/2024 08/04/2023 Tobacco Screening 01/29/2025 01/30/2024 COVID-19 Vaccine ( season) 2025 08/03/2022, 08/26/2021, 01/28/2021, Additional history exists Influenza Vaccine (#1) 2025 9, 07/17/2018, 05/26/2017, Additional history exists Zoster Vaccines (1 of 2) 2039 RSV Patients and Patients Aged 60 years or older (1 - 1-dose 75+ series) 2064 IPV Vaccines Completed 02/03/1994, 12/17, 06/29/1990, Additional history exists Hepatitis B Vaccines Completed 07/14/2005, 11/23/2004, 06/17/2003 Hepatitis A Vaccines Aged Out 12/04/2013, 05/09/20 12 No longer eligible based on patient's age to complete this topic HIV Screening Completed 07/08/2021 Hepatitis C Screening Completed 07/08/2021 HIB Vaccines Aged Out No longer eligi ble based on patient's age to complete this topic Meningococcal B Vaccine Aged Out No l onger eligible based on patient's age to complete this topic Meningococcal Vaccine Aged Out No loni prateek eligible based on patient's age to complete this topic RSV under 20 months Aged Out No longe r eligible based on patient's age to complete this topic Rotavirus Vaccines Aged Out No longer eligible based on patient's age to complete this topic Goals Goal Patient Goal Type Associated Problems Recent Progress Patient-Stated? Author Keep your medical appointments Lifestyle No Baljeet Mcpherson, head chopper Procedure Name Priority Date/Time Associated Diagnosis Comments POCT URINALYSIS DIPSTICK Routine 08/19/2025 1:37 PM EST Dysuria Urinary frequency HPV MRNA E6/E7 REFLEX TO HPV 16, 18/45 Routine 08/04/2023 2:49 PM EST PAP SMEAR Routine 08/04/2023 2:49 PM EST ZZZ HISTORICAL HEPATITIS C AB W/REFL TO HCV RNA, QN, PCR Routine 07/08/2021 9:07 AM EDT HIV 1/2 ANTIGEN/ANTIBODY, FOURTH GENERATION W/RFL Routine 07/08/2021 9:07 AM EDT from Last 3 Months or Most Recently Relevant to Health Maintenance Results * (ABNORMAL) POCT Urinalysis (08/19/2025 1:37 [...] CARE TEST ENTER /EDIT ORDERABLES Final Result * HPV mRNA E6/E7 w/Reflex to HPV Genotypes 16, 18/45 (08/04/2023 2:49 PM EST) HPV nRNA E6/E7 Not Detected Not Detected [facility] Comment:Methodology: Transcr iption-Mediated AmplificationThis assay detects E6/E7 viral messenger RNA (mRNA) from 14high-risk HPV types (16,18,31,33,35,39,45,51,52,56,58,59,66,68).Cervical sources are required for HPV testing.If a vaginal source from a patient who has had atotal hysterectomy with removal of cervix wassubmitted, please contact the testing laboratoryfor alternative testing options.For additional information, please refer tohttp://education.Velocify/faq/VNI286o1(This link if provided for information/educational purposes only.)THIS TEST WAS PERFORMED AT:[employer] [place] [phone] ACEVEDO MD HPV mRNA E6/E7 [facility] HPV 16 RNA [facility] HPV 18/45 RNA [facility] 08/04/2023 2:49 PM EST 08/08/2023 10:30 AM EST us Generic External Data Provider LAB CYTOLOGY MOLLY NGUYEN Final Result [facility] [address] [place] [phone] * Pap Smear (08/04/2023 2:49 PM EST) 08/04/2023 2:49 PM EST 08/08/2023 10:30 AM EST [facility] - 08/22/2023 7:56 AM EST ----- ------- Name: Amairani Bergman Age/Sex: 32/F : 1990 Unit#: [id number] Attend Dr: Ramona Smith CNM Re08/04/23 Status: DEP [facility] ----- ------- SPEC : [id number] RECD: 08/08/23-1030 STATUS: JEEVANTanya HAGER NUM: [id number] SHEILA: 08/04/23-14[address] [facility] [address]: Ramona Smith CNM ENTERED: 08/08/23-1203 SP TYPE: Pap Smr OT DR: Suzy Mondragon ORDERED: Pap Smear Interpretation Satisfactory for evaluation. Negative for intraepithelial lesion or malignancy. HPV mRNA E6/E7: NOT DETECTED This assay detects E6/E7 viral messenger RNA (mRNA) from 14 high-risk HPV types (16, 18, 31, 33, 35, 39, 45, 51, 52, 56, 58, 59, 66, 68) HPV testing performed by [facility] [employer], [place], [place]. See reference laboratory portion of the EMR for entire report. Clinical Information LMP: 07/14/23 Previous PAP test: 2021, ASCUS Material Received ThinPrep-Cervical Copies To: Suzy Mondragon [address] [place] [address] [address] [place], [place] [phone] ----- ------- Signed (signature on file) AGUSTIN Washington (ASCP) 08/22/23 0756 ----- ------- END OF REPORT us Generic External Data Provider LAB CYTOLOGY ORDShailesh NGUYEN Final Result [facility] [address] [place], [place] [phone] * HEPATITIS C AB W/REFL TO HCV RNA, QN, PCR (07/08/2021 9:07 AM EDT) HEPATITIS C ANTIBODY NON-REACT MARIA G NON-REACT MARIA G [facility] INDEX 0.02 <1.00 [facility] Comment: HCV antibody was non-reactive. There is no laboratory evidence of HCV infection. In most cases, no further action is required. However, if recent HCV exposure is suspected, a test for HCV RNA (test code 93577) is suggested. For additional information please refer to http://education.Velocify/faq/QHW45q7 (This link is being provided for informational/ educational purposes only.) 07/08/2021 9:07 AM EDT us Terri Montague MD HISTORICAL/NON ORDERABLE LAB S Final Result Performing Organization Address [facility] Co de Phone Number [facility] [address] * HIV 1/2 ANTIGEN/ANTIBODY,FOURTH GENERATION W/RFL (07/08/2021 9:07 AM EDT) HIV-1/2 ANTIGEN AND ANTIBODIES, 4TH GENERATION W/ REFLEX NON-REACT MARIA G NON-REACT MARIA G [facility] Comment: HIV-1 antigen and HIV-1/HIV-2 antibodies were not detected. There is no laboratory evidence of HIV infection. PLEASE NOTE: This information has been disclosed to you from records whose confidentiality may be protected by state law. If your state requires such protection, then the state law prohibits you from making any further disclosure of the information without the specific written consent of the person to whom it pertains, or as otherwise permitted by law. A general authorization for the release of medical or other information is NOT sufficient for this purpose. For additional information please refer to http://education.Rezdy.Votizen/faq/VXS463 (This link is being provided for informational/ educational purposes only.) The performance of this assay has not been clinically validated in patients less than 2 years old. 07/08/2021 9:07 AM EDT Terri Montague MD LAB BLOOD ORDERABLES Final R esult Performing Organization Address [facility] Co de Phone Number [facility] [address] from Last 3 Months or Most Recently Relevant to Health Maintenance Insurance [employer] Care Teams Landscape Supervisor Relationship Specialty Start Date End Date Suzy Mondragon MD [address] [place] [phone] PCP - General Family Medicine 04/09/21
--- OUTSIDE RECORDS SUMMARY | 2025-08-19 17:16 | XMS_ITS | Encounter Summary ---
Author Organization [employer] [facility] Address [address] [place] [address] Care Team Providers Care Seed Pelleter Name Role Phone Suzy Mondragon MD Primary Care Provider [phone] Reason for Visit * Reason Comments Med Refill Encounter Details Date Type Department Care Team (Late st Contact Info) Description 09/14/2023 Refill [facility] [address] [place] [address] Terri Montague MD [address] [place] [phone] Uncomplicated opioid dependence (CMS/HCC) Social History Tobacco [...] Description 10/02/2025 3:00 PM EST Office Visit [facility] [address] [place] [address] Terri Montague MD [address] [place] [address] documented as of this encounter Visit Diagnoses Diagnosis Uncomplicated opioid dependence (CMS/HCC) (HCC) documented in this encounter Care Teams Seed Pelleter Relationship Specialty Start Date End Date Suzy Mondragon MD [address] [place] [address] PCP - General Family Medicine 04/09/21 documented as of this encounter
--- OUTSIDE RECORDS SUMMARY | 2025-08-19 17:16 | XMS_ITS | Encounter Summary ---
Author Organization [email or web address] Address [address] [place] [address] [address] [place] [address] Care Team Providers Care Tractor Trailer Moving Van Driver Name Role Phone Suzy Mondragon MD Primary Care Provider [phone] Reason for Visit * Reason Onset Date Comments Referral 07/02/2025 Encounter Details Date Type Department Care Team ([facility] st Contact Info) Description 07/02/2025 Telephone [facility] [address] [place] [address] Suzy Mondragon MD [address] [place] [address] Referral Social History Tobacco Use Types Packs/Day Years [...] encounter Miscellaneous Notes * Telephone Encounter - Yumiko Reyes RN - 07/03/2025 12:59 PM EDT TC returned to pt. Pt. Reports she was seen on an emergency basis yesterday for a foreign body in the eye, pt. Reports eye care provider was able to remove it but pt. Had a scratched cornea and was prescribed eye drops. They informed her at the time of the visit that in order for [facility] to pay for the visit, they would need a referral to PCP. Advised pt. Request for referral with diagnosis of foreign body in eye would be [facility], pt. Agrees to plan and will f/up later next week to check status. Thank you! * Telephone Encounter - Joel Kumar - 07/02/2025 12:59 PM EDT Tc from pt requesting a referral to [facility] eye [address] [place] [address] , pt stating she has an apt today Contact pt at [phone] documented in this encounter Plan of Treatment Upcoming Encounters Date Type Department Care Team (Late st Contact Info) Description 10/02/2025 3:00 PM EST Office Visit [facility] [address] [place] [address] Terri Montague MD [address] [place] [address] documented as of this encounter Goals Goal Patient Goal Type Associated Problems Recent Progress Patient-Stated? Author Keep your medical appointments Lifestyle No Baljeet Mcpherson, TREY documented as of this encounter Visit Diagnoses Not on filedocumented in this encounter Care Teams Tractor Trailer Moving Van Driver Relationship Specialty Start Date End Date Suzy Mondragon MD [address] [place] [address] PCP - General Family Medicine 04/09/21 documented as of this encounter
--- OUTSIDE RECORDS SUMMARY | 2025-08-19 17:16 | XMS_ITS | Encounter Summary ---
Author Organization [employer] [facility] Address [address] [place] [address] Care Team Providers Care Academic Affairs Specialist Name Role Phone Suzy Mondragon MD Primary Care Provider [phone] Encounter Details Date Type Department Care Team (Late st Contact Info) Description 04/06/2023 Abstract [facility] [address] [place] [address] Suzy Mondragon MD [address] [place] [phone] Social History Tobacco Use Types Packs/Day Years [...] Description 10/02/2025 3:00 PM EST Office Visit [facility] [address] [place] [address] Terri Montague MD [address] [place] [address] documented as of this encounter Visit Diagnoses Not on filedocumented in this encounter Care Teams Academic Affairs Specialist Relationship Specialty Start Date End Date Suzy Mondragon MD [address] [place] [address] PCP - General Family Medicine 04/09/21 documented as of this encounter
--- OUTSIDE RECORDS SUMMARY | 2025-08-19 17:16 | XMS_ITS | Encounter Summary ---
Author Organization [employer] Address [address] [place] [address] 7 [place] [address] Care Team Providers Care It Desktop Support Specialist Name Role Phone Suzy Mondragon MD Primary Care Provider [phone] Reason for Referral * Consultation (STAT) - Closed Specialty Diagnoses / Procedures Referred By Contac t Referred To Contact Ophthalmology Diagnoses Corneal abrasion, unspecified laterality, initial encounter Foreign body in eye, unspecified laterality, initial encounter Suzy Mondragon MD [address] [place] [address] Phone: tel: fax: [address] [place] [address] Phone: tel: fax: Referral ID Status Reason Start Date Expiration Date V isits Requested Visits Authorized [id number] Closed Specialty Services Required 07/04/2025 07/04/2026 6 6 Encounter Details Date Type Department Care Team (Late st Contact Info) Description 07/04/2025 Orders Only [facility] [address] [place], [place] [phone] Suzy Mondragon MD [address] [place], [place] [phone] Corneal abrasion, unspecified laterality, initial encounter (Primary Dx); Foreign body in eye, unspecified laterality, initial encounter Social History Tobacco Use Types Packs/Day Years [...] Description 10/02/2025 3:00 PM EST Office Visit [facility] [address] [place] [address] Terri Montague MD [address] [place] [address] Scheduled Referrals Name Type Priority Associated Diagnoses Order Schedule Referral to Ophthalmology Outpatient Referral STAT Corneal abrasion, unspecified laterality, initial encounter Foreign body in eye, unspecified laterality, initial encounter Expected: 07/04/2025 (Approximate), Expires: 07/04/2026 documented as of this encounter Goals Goal Patient Goal Type Associated Problems Recent Progress Patient-Stated? Author Keep your medical appointments Lifestyle No Baljeet Mcpherson, RN documented as of this encounter Visit Diagnoses Diagnosis Corneal abrasion, unspecified laterality, initial encounter- Primary Foreign body in eye, unspecified laterality, initial encounter documented in this encounter Care Teams It Desktop Support Specialist Relationship Specialty Start Date End Date Suzy Mondragon MD [address] [place] [address] PCP - General Family Medicine 04/09/21 documented as of this encounter
--- OUTSIDE RECORDS SUMMARY | 2025-08-19 17:16 | XMS_ITS | Encounter Summary ---
Author Organization [employer] Address [address] [place] [address] Care Team Providers Care Intermediate Card Tender Name Role Phone Suzy Mondragon MD Primary Care Provider [phone] Reason for Visit * Reason Comments Med Refill Encounter Details Date Type Department Care Team (Late Contact Info) Description 06/05/2025 Refill [facility] MEDICINE [address] [place] [address] [phone] Terri Montague MD [address] [place] [address] [phone] Uncomplicated opioid dependence (CMS/HCC) Social History Tobacco [...] Encounters Date Type Department Care Team (Late Contact Info) Description 10/02/2025 3:00 PM EST Office Visit [facility] MEDICINE [address] [place] [address] Terri Montague MD [address] [place], [place] [phone] documented as of this encounter Goals Goal Patient Goal Type Associated Problems Recent Progress Patient-Stated? Author Keep your medical appointments Lifestyle No Baljeet Mcpherson RN documented as of this encounter Visit Diagnoses Diagnosis Uncomplicated opioid dependence (CMS/HCC) (HCC) documented in this encounter Care Teams Intermediate Card Tender Relationship Specialty Start Date End Date Suzy Mondragon MD [address] [place] [address] PCP - General Family Medicine 04/09/21 documented as of this encounter
--- OUTSIDE RECORDS SUMMARY | 2025-08-19 17:16 | XMS_ITS | Encounter Summary ---
Author Organization [employer] Address [address] [place] [address] 7 [place] [address] Care Team Providers Care Art Historian Name Role Phone Suzy Mondragon MD Primary Care Provider [phone] Encounter Details Date Type Department Care Team (Latest Contact Info) Description 08/19/2025 Travel Social History Tobacco Use Types Packs/Day Years [...] Description 10/02/2025 3:00 PM EST Office Visit [facility] MEDICINE [address] [place] [address] Terri Montague MD [address] [place] [address] documented as of this encounter Goals Goal Patient Goal Type Associated Problems Recent Progress Patient-Stated? Author Keep your medical appointments Lifestyle No Baljeet Mcpherson, RN documented as of this encounter Visit Diagnoses Not on filedocumented in this encounter Care Teams Art Historian Relationship Specialty Start Date End Date Suzy Mondragon MD [address] [place] [address] PCP - General Family Medicine 04/09/21 documented as of this encounter
--- OUTSIDE RECORDS SUMMARY | 2025-08-19 17:16 | XMS_ITS | Encounter Summary ---
Author Organization [employer] [facility] Address [address] [place] [address] Care Team Providers Care Linen Supply Load Builder Name Role Phone Suzy Mondragon MD Primary Care Provider [phone] Reason for Visit * Reason Comments Med Refill Encounter Details Date Type Department Care Team (Late st Contact Info) Description 01/04/2024 Refill [facility] MEDICINE [address] [place] [address] [phone] Rosalia Griffith MD [address] [place] [address] [phone] Uncomplicated opioid dependence (CMS/HCC) Social History Tobacco [...] Description 10/02/2025 3:00 PM EST Office Visit [facility] MEDICINE [address] [place] [address] Terri Montague MD [address] [place], [place] [phone] documented as of this encounter Visit Diagnoses Diagnosis Uncomplicated opioid dependence (CMS/HCC) (HCC) documented in this encounter Care Teams Linen Supply Load Builder Relationship Specialty Start Date End Date Suzy Mondragon MD [address] [place] [address] PCP - General Family Medicine 04/09/21 documented as of this encounter
--- OUTSIDE RECORDS SUMMARY | 2025-08-19 17:16 | XMS_ITS | Encounter Summary ---
Author Organization [employer] [facility] Address [address] [place] [address] Care Team Providers Care Home Restoration Service Supervisor Name Role Phone Suzy Mondragon MD Primary Care Provider [phone] Reason for Visit * Reason Comments Med Refill Encounter Details Date Type Department Care Team (Late st Contact Info) Description 05/25/2023 Refill [facility] MEDICINE [address] [place] [address] Terri Montague MD [address] [place] [phone] Uncomplicated opioid dependence (CMS/HCC) Social History Tobacco [...] 3:00 PM EST Office Visit [facility] MEDICINE [address] [place] [phone] Terri Montague MD [address] [place] [address] documented as of this encounter Visit Diagnoses Diagnosis Uncomplicated opioid dependence (CMS/HCC) (HCC) documented in this encounter Care Teams Home Restoration Service Supervisor Relationship Specialty Start Date End Date Suzy Mondragon MD [address] [place] [address] PCP - General Family Medicine 04/09/21 documented as of this encounter
[2025-08-19 18:34] LABS: CT PCR NOT DETECTED (Not Detect.); NG PCR NOT DETECTED (Not Detect.)
[2025-08-20 10:08] LABS: Bacterial Vaginosis PCR NEGATIVE (Negative); Candida Group PCR NOT DETECTED (Not Detect); Candida glab krusei PCR NOT DETECTED (Not Detect); Trichomonas vaginalis PCR NOT DETECTED (Not Detect)
== END 2025-08-19 16:11 | disposition home or self-care (01) ==
LOC: HO.HHCLNP 16:10
PROVIDERS: Visit Provider Internal Medicine
DX: Z20.2 Contact with and (suspected) exposure to infections with a predominantly sexual mode of transmission (principal); N30.01 Acute cystitis with hematuria; R30.0 Dysuria
CPT/HCPCS: 81515; 87086; 87088; 87186; 87491; 87591

== ENCOUNTER 2025-09-13 01:41 | Emergency (ER) | payer SELFPAY ==
--- OUTSIDE RECORDS SUMMARY | 2025-09-09 11:20 | XMS_ITS | Encounter Summary ---
Author Organization [employer] Address [address] [facility] 7 [place] [address] Care Team Providers Care Digital Marketing Executive Name Role Phone Suzy Mondragon MD Primary Care Provider [phone] Encounter Details Date Type Department Care Team (Latest Contact Info) Description 09/09/2025 11:20 AM EST Clinical Support [facility]INE [address] [place] [address] Baljeet Mcpherson RN [address] [place] [address] Uncomplicated opioid dependence (CMS/HCC) (HCC) (Primary Dx) Social History Tobacco Use Types Packs/Day Years [...] AM EDT documented as of this encounter Progress Notes * Baljeet Mcpherson RN - 09/09/2025 11:20 AM EST Patient here today for OBAT visit. Patient on current buprenorphine-naloxone dose of 24/6 mg on an 8 week schedule. Patient has been in the program for 13 years 8 months. Intake date: 12/21/11. LFTs done 12/21/23. HIV/Hep C screening done: 07/08/21 - negative. Hepatitis A/B status: immune. Smoking status: 09/19 PPD. Last PCP appt 08/19/25. Patient not enrolled in behavioral health services. MO HUMPHREYS reviewed by provider. LAST VISIT 02/20/25 POS:BUP ONLY Subjective Patient ID: Amairani Bergman is a 34 y.o. female who presents for OBAT. Amairani is being seen for OBAT services. She is maintaining abstinence on Suboxone with no cravings or med side effects. Very busy with work and family. Has three boys in high school and one in middle school. Mood is good. Denies depression or anxiety. Her only day off is Monday. Doesn't want to switch clinics and I told her we don't have to make a decision about that right now. TODAY 09/09/25 +bup, thc Amairani is here to citrus picker refill after missing last appointment. Apologetic for missing appointment, she has been working a lot and moved recently into a 4 bedroom apartment with her 4 boys. Reports she used a little marijuana a couple days ago for stress relief, does not use regularly. Doing well on Suboxone. No concerns today. Plan: Buprenorphine-naloxone dosing schedule of 24/6 mg daily and management of side effects reviewed. Recovery support, risk reduction (including Narcan), and behavioral health attendance reviewed. Appointment for 10/02/25 given. Patient expressed understanding and agreement with continuing plan of care. This information has been disclosed to you from records protected by federal confidentiality rules (42 CFR Part 2). The federal rules prohibit you from making any further disclosure of information inthis record that identifies a patient as having or having had a substance use disorder either directly, by reference to publicly available information, or through verification of such identification by another person unless further disclosure is expressly permitted by the written consent of the individual whose information is being disclosed or as otherwise permitted by (see2.3.1). The federal rules restrict any use of the information to investigate or prosecute with regard to a crime any patient with a substance use disorder, except as provided at 2.12??(5) and 2.65. documented in this encounter Plan of Treatment Upcoming Encounters Date Type Department Care Team (Late st Contact Info) Description 10/02/2025 3:00 PM EST Office Visit [facility] [address] [place] [address] Terri Montague MD [address] [place] [address] documented as of this encounter Goals Goal Patient Goal Type Associated Problems Recent Progress Patient-Stated? Author Keep your medical appointments Lifestyle No Baljeet Mcpherson, TREY documented as of this encounter Procedures Procedure Name Priority Date/Time Associated Diagnosis Comments POCT MARY-14 URINE DRUG SCREEN Routine 09/09/2025 12:32 PM EST Uncomplicated opioid dependence (CMS/HCC) (HCC) documented in this encounter Results * (ABNORMAL) POCT MARY-14 Urine Drug Screen (09/09/2025 12:32 PM EST) Amphetamine Screen, Urine Negative Negative Barbiturate Screen, Urine Negative Negative Buprenophine Screen, Urine Positive(A) Negative Benzodiazepines Screen, Urine Negative Negative Cocaine Screen, Urine Negative Negative Fentanyl, Urine Negative Negative MDMA Urine Negative Negative ng/mL Methamphetamine Screen Urine Negative Negative Opiate Screen, Urine Negative Negative Methadone Screen, Urine Negative Negative Oxycodone Screen, Urine Negative Negative Phencyclidine (PCP), Urine Negative Negative TCA, Urine Negative Negative THC Positive(A) Negative Urine Urine specimen obtained by clean catch procedure / Unknown 09/09/2025 12:32 PM EST us Reyes Jewell MD POINT OF CARE TEST ENTER/EDIT ORDERABLES Final Result documented in this encounter Visit Diagnoses Diagnosis Uncomplicated opioid dependence (CMS/HCC) (HCC)- Primary documented in this encounter Care Teams Digital Marketing Executive Relationship Specialty Start Date End Date Suzy Mondragon MD [address] [place] [address] PCP - General Family Medicine 04/09/21 documented as of this encounter
[2025-09-13 01:45] VITALS: BP 119/64; PULSE 94; RESP 16; TEMP 36.3; O2SAT 99; BMI 21.3
--- NOTE | 2025-09-13 01:45 | ED_ITS ---
HPI - Female Genitourinary General Stated complaint: irritation when urinating Related Data Home Medications ?Medication ?Instructions ?Recorded ?Confirmed buprenorphine 8 mg-naloxone 2 mg 1.5 film buccal DAILY 07/01/20 07/01/20 sublingual film (Suboxone) Previous Rx's ?Medication ?Instructions ?Recorded norelgestromin 150 mcg-e.estradiol 1 patch transdermal Q7D 3 weeks #9 08/04/23 35 mcg/24 hr weekly transderm ea patch (Xulane) nirmatrelvir 300 mg (150 mg See Rx Instructions PO .CO MPLEX 08/28/23 x2)-ritonavir 100 mg tablet,dose #30 ea pack (Paxlovid) azithromycin 250 mg tablet 250 mg PO DAILY 4 days #4 t abs 12/21/23 (Zithromax) Allergies Allergy/AdvReac Type Severity Reaction Status Date / Time amoxicillin Allergy Rash Verified 09/13/25 01:46 PMFSH Past Medical History Medical History ASCUS of cervix with negative high risk HPV Abnormal cervical Papanicolaou smear S/P extracorporeal shock wave therapy (~2008) Smoker GERD (gastroesophageal reflux disease) Depression H/O calculus of kidney during History of drug abuse Surgical History H/O cystoscopy (~2007) Family History Family History Father Diabetes Hypertension Mother Depression Social History Social History Household Members: Children Housing: Apartment Alcohol intake: never Patient Tobacco Use Status: Current everyday Tobacco user Cigarette Packs Per Day: 0.5 Cigarettes Per Day: 10.0 Years Smoked: 4 Current occupational status: employed 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 Has a history of BV and feels similar. Has appt with gynecology on 09/15. LMP 2 weeks ago. Would like STI testing. VSS Will obtain BV panel, CT NG urine, UA, ur preg Discharge Plan Discharge Prescriptions: No Action buprenorphine-naloxone [Suboxone] 8-2 mg Film 1.5 film BUCCAL DAILY azithromycin [Zithromax] 250 mg tablet 250 mg PO DAILY 4 Days Qty: 4 0RF Rx Instructions: start on day 2 of therapy Paxlovid 300 mg (150 mg x 2)-100 mg tablets,dose pack See Rx Instructions .ROUTE .COMPLEX Qty: 30 0RF Rx Instructions: take TWO 150 mg tablets of nirmatrelvir with ONE 100 mg tablet of ritonavir twice daily for 5 days Xulane 150-35 mcg/24 hr patch weekly 1 patch transdermal Q7D 21 Days Qty: 9 4RF Print Language: Algerian
[2025-09-13 02:20] LABS: Appearance Urine Clear; Glucose Urine UA Negative (Negative); PH 5.5 (5.0-9.0); Specific Gravity - Urine 1.025 (1.005-1.025); UMIC TRIGGER UACC YES
--- OUTSIDE RECORDS SUMMARY | 2025-09-13 02:21 | XMS_ITS | Encounter Summary ---
Author Organization [employer] [facility] Address [address] [place] [address] Care Team Providers Care Pharmacist Helper Name Role Phone Suzy Mondragon MD Primary Care Provider [phone] Reason for Visit * Reason Comments Med Refill Encounter Details Date Type Department Care Team (Late st Contact Info) Description 11/09/2023 Refill [facility] MEDICINE [address] [place] [address] Terri Montague MD [address] [place] [phone] Uncomplicated opioid dependence (CMS/HCC) Social History Tobacco [...] Description 10/02/2025 3:00 PM EST Office Visit [facility] MEDICINE [address] [place] [address] Terri Montague MD [address] [place] [phone] documented as of this encounter Visit Diagnoses Diagnosis Uncomplicated opioid dependence (CMS/HCC) (HCC) documented in this encounter Care Teams Pharmacist Helper Relationship Specialty Start Date End Date Suzy Mondragon MD [address] [place] [address] PCP - General Family Medicine 04/09/21 documented as of this encounter
--- OUTSIDE RECORDS SUMMARY | 2025-09-13 02:21 | XMS_ITS | Encounter Summary ---
Author Organization [employer] [facility] Address [address] [place] [address] Care Team Providers Care Clinical Nursing Professor Name Role Phone Suzy Mondragon MD Primary Care Provider Reason for Visit * Reason Comments Med Refill Encounter Details Date Type Department Care Team (Late st Contact Info) Description 01/04/2024 Refill [facility] MEDICINE [address] [place], [place] [phone] Rosalia Griffith MD [address] [place] [address] [phone] Uncomplicated opioid dependence (CMS/[facility]) Social History Tobacco Use Types Packs/Day Years [...] Description 10/02/2025 3:00 PM EST Office Visit [facility] MEDICINE [address] [place], [place] [phone] Terri Montague MD [address] [place], [place] [phone] documented as of this encounter Visit Diagnoses Diagnosis Uncomplicated opioid dependence (CMS/HCC) (HCC) documented in this encounter Care Teams Clinical Nursing Professor Relationship Specialty Start Date End Date Suzy Mondragon MD [address] [place] [address] PCP - General Family Medicine 04/09/21 documented as of this encounter
--- OUTSIDE RECORDS SUMMARY | 2025-09-13 02:21 | XMS_ITS | Encounter Summary ---
Author Organization [employer] Address [address] [place] [address] 7 [place] [address] Care Team Providers Care Olive Grower Name Role Phone Suzy Mondragon MD Primary Care Provider [phone] Encounter Details Date Type Department Care Team ([facility] st Contact Info) Description 08/26/2025 Results Follow-Up [facility] MEDICINE [address] [place] [address] Norah Roy MD [address] [place] [address] POCT Urinalysis, Chlamydia/N. Gonorrhoeae RNA, TMA, Vaginal, Bacterial Vaginosis Panel, Culture, Urine, Routine Social History Tobacco Use Types Packs/Day Years [...] as of this encounter Miscellaneous Notes * Result Encounter Note - Norah Roy MD - 08/26/2025 9:32 AM EST UxCx reviewed patient had E.Coli contaminated urine, patient was prescribed Bactrim, no need for addtl prescription. documented in this encounter Plan of Treatment Upcoming Encounters Date Type Department Care Team (Late st Contact Info) Description 10/02/2025 3:00 PM EST Office Visit [facility] MEDICINE [address] [place], [place] [phone] Terri Montague MD [address] [place], [place] [phone] documented as of this encounter Goals Goal Patient Goal Type Associated Problems Recent Progress Patient-Stated? Author Keep your medical appointments Lifestyle No Baljeet Mcpherson, RN documented as of this encounter Visit Diagnoses Not on filedocumented in this encounter Care Teams Olive Grower Relationship Specialty Start Date End Date Suzy Mondragon MD [address] [place], [place] [phone] PCP - General Family Medicine 04/09/21 documented as of this encounter
--- OUTSIDE RECORDS SUMMARY | 2025-09-13 02:21 | XMS_ITS | Clinical Summary ---
Author Organization [employer] Address [address] [facility] 7 [place] [address] Care Team Providers Care Roving Technician Name Role Phone Suzy Mondragon MD Primary Care Provider [phone] Allergies Active Allergy Reactions Criticality Noted Date Comments Bupropion 08/15/2011 Other reaction(s): Hives / Skin Rash Medications * This document contains information received from the source organization and may not represent a complete record from that organization. omeprazole (PriLOSEC) [address] capsule Take 1 capsule by mouth at bed time. 0 Active fluticasone (Flonase Allergy Relief) 50 MCG/ACT nasal spray Administer 1-2 sprays into affected nostril(s) at bed time. 0 Active Vit-Fe Fumarate-FA ( Vitamins) 28-0.8 MG tablet Take 1 tablet by mouth in the morning. 1 Active famotidine (Pepcid) 20 MG tablet Take 1 tablet by mouth every 12 (twelve) hours. 0 Active Zafemy 150-35 MCG/24HR APPLY 1 PATCH TRANSDERMALLY EVERY 7 DAYS FOR 3 [id number] 3 Active Buprenorphine HCl-Naloxone HCl (Suboxone) 8-2 MG SL filmIndication s:Uncomplicate d opioid dependence (CMS/HCC) (HCC) Place 3 Film under the tongue Once per day. 84 Film 1 09/09/2025 12:39 PM EST 5 026 Active sulfamethoxazo le-trimethopri m (Bactrim DS) 800-160 MG tablet Take 1 tablet by mouth 2 times daily for 5 days. 10 tablet 025 Active Problems Problem Noted Date Diagnosed Date Acute cystitis with hematuria 08/19/2025 Assessment & Plan (08/26/2025 9:30 AM EST): - Urinary tract infection diagnosed, likely acute cystitis. - Prescribed Bactrim for 5 days, one tablet in the morning and one at night. Recommended increased fluid intake and cranberry juice. Sent urine for culture to confirm infection and guide antibiotic therapy. Gastroesophageal reflux disease 05/19/2021 Mixed anxiety and depressive disorder 11/20/2013 Opioid dependence 07/02/2012 Encounters Date Type Department Care Team Description 09/09/2025 11:20 AM EST Clinical Support [address] [address] Baljeet Mcpherson RN Uncomplicated opioid dependence ([facility]) ([facility]) (Primary Dx) 08/26/2025 Results Follow-Up [address] [address] Norah Roy MD POCT Urinalysis, Chlamydia/N. Gonorrhoeae RNA, TMA, Vaginal, Bacterial Vaginosis Panel, Culture, Urine, Routine 08/19/2025 11:45 AM EST Office Visit [address] [address] Norah Roy MD Acute cystitis with hematuria (Primary Dx); Dysuria; Urinary frequency 08/19/2025 Travel 08/18/[address] [address] Suzy Mondragon MD Nurse Triage 07/29/[address] [address] Terri Montague MD Uncomplicated opioid dependence ([facility]) (HCC) 07/04/2025 Orders Only [address] [address] Suzy Mondragon MD Corneal abrasion, unspecified laterality, initial encounter (Primary Dx); Foreign body in eye, unspecified laterality, initial encounter 07/02/[address] [place] [address] Suzy Mondragon MD Referral from Last 3 Months Immunizations Immunization Administration [...] Description 10/02/2025 3:00 PM EST Office Visit [facility] [address] [place] [address] Terri Montague MD [address] [place], [place] [phone] Health Maintenance Due Date Last Done Comments [...] your medical appointments Lifestyle No Baljeet Mcpherson, help desk administrator Procedure Name Priority Date/Time Associated Diagnosis Comments POCT MARY-14 URINE DRUG SCREEN Routine 09/09/2025 12:32 PM EST Uncomplicated opioid dependence (CMS/HCC) (HCC) CULTURE, URINE, ROUTINE Routine 08/19/2025 2:01 PM EST Acute cystitis with hematuria Dysuria BACTERIAL VAGINOSIS PANEL Routine 08/19/2025 2:01 PM EST Acute cystitis with hematuria Dysuria CHLAMYDIA/N. GONORRHOEAE RNA, TMA, UROGENITAL Routine 08/19/2025 2:01 PM EST Acute cystitis with hematuria Dysuria POCT URINALYSIS DIPSTICK Routine 08/19/2025 1:37 PM [...] to Health Maintenance Results * (ABNORMAL) POCT MARY-14 Urine Drug [...] OF CARE TEST ENTER/EDIT ORDERABLES Final Result * Bacterial Vaginosis Panel (08/19/2025 2:01 PM EST) TRICHOMONAS VAGINALIS DETECTION BY PCR NOT DETECTED Not Detect [facility] BACTERIAL VAGINOSIS DETECTION BY PCR NEGATIVE Negative [facility] Comment:The BV organism targ ets of the Xpert Xpress MVP test can becommensal in women; Xpert Xpress MVP positive results forbacterial vaginosis should be considered in conjunction withother clinical and patient information to determine thedisease status. Organisms that are not detected by the XpertXpress MVP test have also been reported to be associatedwith BV and aerobic vaginitis.The Xpert Xpress MVP test performance has not been evaluatedin patients under the age of 14. LALY GROUP DETECTION BY PCR NOT DETECTED Not Detect [facility] Laly glab krusei PCR NOT DETECTED Not Detect [facility] Swab Vaginal structure / Unknown 08/19/2025 2:01 PM EST 08/19/2025 4:12 PM EST Norah Roy MD LAB MICROBIOLOGY - GENER AL ORDERABLES Final Result [facility] [address] [place] [phone] [phone] * Chlamydia/N. Gonorrhoeae RNA, TMA, Vaginal (08/19/2025 2:01 PM EST) CT PCR NOT DETECTED Not Detect. [facility] Comment:A not detected test result does not exclude the possibilityof infection because test results can be affected byimproper specimen collection, concurrent antibiotic therapy,or the number of organisms in the specimen which may bebelow the sensitivity of the test. As with many diagnostictests, results from the Xpert CT/NG assay should beinterpreted in conjunction with other laboratory andclinical data available to the clinician.Xpert CT/NG performance has not been evaluated in patientsless than 14 years of age. The assay should not be used forthe evaluationof suspected sexual abuse or for other medico-legalindications. Additional testing is recommended in anycircumstance when false positive or false negative resultscould lead to adverse medical, social or psychologicalconsequences. NG PCR NOT DETECTED Not Detect. [facility] Comment:A not detected test result does not exclude the possibilityof infection because test results can be affected byimproper specimen collection, concurrent antibiotic therapy,or the number of organisms in the specimen which may bebelow the sensitivity of the test. As with many diagnostictests, results from the Xpert CT/NG assay should beinterpreted in conjunction with other laboratory andclinical data available to the clinician.Xpert CT/NG performance has not been evaluated in patientsless than 14 years of age. The assay should not be used forthe evaluationof suspected sexual abuse or for other medico-legalindications. Additional testing is recommended in anycircumstance when false positive or false negative resultscould lead to adverse medical, social or psychologicalconsequences. Swab (Vaginal Swab) 08/19/2025 2:01 PM EST 08/19/2025 4:12 PM EST us Norah Roy MD LAB MICROBIOLOGY - GENER AL ORDERABLES Final Result Performing Organization Address [facility] Co de Phone Number [facility] [address] [place] [phone] * Culture, Urine, Routine (08/19/2025 2:01 PM EST) Urine Urine specimen obtained by clean catch procedure / Unknown 08/19/2025 2:01 PM EST 08/19/2025 4:12 PM EST Comment:UACC Narrative [facility] - 08/21/2025 8:23 AM EST Escherichia coli Quant 10,000 to 50,000 cfu/mL Escherichia coli: Ampicillin >=32(R) Escherichia coli: Cefazolin (Urine) 8(S) Escherichia coli: Cefepime <=0.12(S) Escherichia coli: Ceftriaxone <=0.25(S) Escherichia coli: Ciprofloxacin <=0.06(S) Escherichia coli: Gentamicin <=1(S) Escherichia coli: Nitrofurantoin <=16(S) Escherichia coli: Trimethoprim/Sulfamethoxazole <=20(S) Specimen Source: Urine clean catch us Norah Roy MD LAB MICROBIOLOGY - GENER AL ORDERABLES Final Result Performing Organization Address [facility] de Phone Number [facility] [address] [place] [phone] * (ABNORMAL) POCT Urinalysis (08/19/2025 1:37 PM [...] Media Lot # [id number] Lot# Expiration Date [id number] Urine (Urine, Random) 08/19/2025 1:37 PM EST Norah Roy MD POINT OF CARE TEST ENTER /EDIT ORDERABLES Final Result * HPV mRNA E6/E7 w/Reflex to HPV Genotypes 16, 18/45 (08/04/2023 2:49 PM EST) HPV nRNA E6/E7 Not Detected Not Detected [facility] Comment:Methodology: Transcr iption-Mediated AmplificationThis assay detects E6/E7 viral messenger RNA (mRNA) from 14high-risk HPV types (16,18,31,33,35,39,45,51,52,56,58,59,66,68).Cervical sources are required for HPV testing.If a vaginal source from a patient who has had atotal hysterectomy with removal of cervix wassubmitted, please contact the testing laboratoryfor alternative testing options.For additional information, please refer tohttp://education.SoftRun/faq/NSD016m3(This link if provided for information/educational purposes only.)THIS TEST WAS PERFORMED AT:[employer] [place] [phone] ACEVEDO MD HPV mRNA E6/E7 [facility] HPV 16 RNA [facility] HPV 18/45 RNA [facility] 08/04/2023 2:49 PM EST 08/08/2023 10:30 AM EST us Generic External Data Provider LAB CYTOLOGY MOLLY NGUYEN Final Result [facility] [address] [place] [phone] * Pap Smear (08/04/2023 2:49 PM EST) 08/04/2023 2:49 PM EST 08/08/2023 10:30 AM EST [facility] - 08/22/2023 7:56 AM EST ----- ------- Name: Amairani Bergman Age/Sex: 32/F : 1990 Unit#: [id number] Attend Dr: Ramona Smith CNM Re08/04/23 Status: DEP REF Location: [facility] Disch: ----- ------- SPEC : [id number] RECD: 08/08/23-1030 STATUS: SERINA CARREONGali NUM: [id number] SHEILA: 08/04/23-1449 [facility] DR: Ramona Smith CNM ENTERED: 08/08/23-1203 SP TYPE: Pap Smr OTHR DR: Suzy Mondragon ORDERED: Pap Smear Interpretation Satisfactory for evaluation. Negative for intraepithelial lesion or malignancy. HPV mRNA E6/E7: NOT DETECTED This assay detects E6/E7 viral messenger RNA (mRNA) from 14 high-risk HPV types (16, 18, 31, 33, 35, 39, 45, 51, 52, 56, 58, 59, 66, 68) HPV testing performed by [employer], [place], [place]. See reference laboratory portion of the EMR for entire report. Clinical Information LMP: 07/14/23 Previous PAP test: 2021, [facility] Material Received ThinPrep-Cervical Copies To: Suzy Mondragon [address] [place] [address] Ramona Smith [address] [place] [address] ----- ------- Signed (signature on file) AGUSTIN [place] ([facility]) 08/22/23 0756 ----- ------- END OF REPORT us Generic External Data Provider LAB CYTOLOGY MOLLY NGUYEN Final Result [facility] [address] [place] [phone] [phone] * HEPATITIS C AB W/REFL TO HCV RNA, QN, PCR (07/08/2021 9:07 AM EDT) HEPATITIS C ANTIBODY NON-REACT MARIA G NON-REACT MARIA G [facility] INDEX 0.02 <1.00 [facility] Comment: HCV antibody was non-reactive. There is no laboratory evidence of HCV infection. In most cases, no further action is required. However, if recent HCV exposure is suspected, a test for HCV RNA (test code 13659) is suggested. For additional information please refer to http://education.SoftRun/faq/VIP84n7 (This link is being provided for informational/ educational purposes only.) 07/08/2021 9:07 AM EDT Terri Montague MD HISTORICAL/NON ORDERABLE LAB S Final Result Performing Organization Address [facility] Phone Number [facility] [address] * HIV 1/2 ANTIGEN/ANTIBODY,FOURTH GENERATION W/RFL (07/08/2021 9:07 AM EDT) HIV-1/2 ANTIGEN AND ANTIBODIES, 4TH GENERATION W/ REFLEX NON-REACT MARIA G NON-REACT MARIA G [facility] Comment: HIV-1 antigen and HIV-1/HIV-2 [...] purpose. For additional information please refer to http://education.[employer]ureMedia.Q Design/faq/MRZ069 (This link is being provided for informational/ educational purposes only.) The performance of this assay has not been clinically validated in patients less than 2 years old. 07/08/2021 9:07 AM EDT Terri Montague MD LAB BLOOD ORDERABLES Final R esult Performing Organization Address [facility] de Phone Number [facility] [address] from Last 3 Months or Most Recently Relevant to Health Maintenance Insurance [facility] C3 * Guarantor: Amairani Bergman Account Type Relation to Patient Date of Phone Billing Address Personal/Family Self [address] [place] Care Teams Roving Technician Relationship Specialty Start Date End Date Suzy Mondragon MD [address] [place] [address] [place] [address] PCP - General Family Medicine 04/09/21
--- OUTSIDE RECORDS SUMMARY | 2025-09-13 02:21 | XMS_ITS | Encounter Summary ---
Author Organization [employer] [facility] Address [address] [place] [address] Care Team Providers Care Licensing Specialist Name Role Phone Suzy Mondragon MD Primary Care Provider Reason for Visit * Reason Comments Med Refill Encounter Details Date Type Department Care Team (Late Contact Info) Description 06/05/2025 Refill [facility] [address] [place], [place] [phone] Terri Montague MD [address] [place] [phone] Uncomplicated opioid dependence (CMS/FORMER[facility]) Social History Tobacco Use Types Packs/Day Years [...] Description 10/02/2025 3:00 PM EST Office Visit [facility] [address] [place], [place] [phone] Terri Montague MD [address] [place], [place] [phone] documented as of this encounter Goals Goal Patient Goal Type Associated Problems Recent Progress Patient-Stated? Author Keep your medical appointments Lifestyle No Baljeet Mcpherson RN documented as of this encounter Visit Diagnoses Diagnosis Uncomplicated opioid dependence (CMS/HCC) (HCC) documented in this encounter Care Teams Licensing Specialist Relationship Specialty Start Date End Date Suzy Mondragon MD [address] [place] [address] PCP - General Family Medicine 04/09/21 documented as of this encounter
--- OUTSIDE RECORDS SUMMARY | 2025-09-13 02:21 | XMS_ITS | Encounter Summary ---
Author Organization [employer] Address [address] [place] [address] Care Team Providers Care Field Irrigation Worker Name Role Phone Suzy Mondragon MD Primary Care Provider [phone] Reason for Referral * Consultation (STAT) - Closed Specialty Diagnoses / Procedures Referred By Contac t Referred To Contact Ophthalmology Diagnoses Corneal abrasion, unspecified laterality, initial encounter Foreign body in eye, unspecified laterality, initial encounter Suzy Mondragon MD [address] [place] [address] Phone: tel: fax: [facility] [address] [place] [address] Phone: tel: fax: Referral ID Status Reason Start Date Expiration Date V isits Requested Visits Authorized [id number] Closed Specialty Services Required 07/04/2025 07/04/2026 6 6 Encounter Details Date Type Department Care Team (Late st Contact Info) Description 07/04/2025 Orders Only [facility] [address] [place], [place] [phone] Suzy Mondragon MD [address] [place], [place] [phone] Corneal abrasion, unspecified laterality, initial encounter (Primary [...] Description 10/02/2025 3:00 PM EST Office Visit [facility] [address] [place] [address] Terri Montague MD [address] [place] [address] Scheduled Referrals Name Type Priority Associated Diagnoses [...] encounter documented in this encounter Care Teams Field Irrigation Worker Relationship Specialty Start Date End Date Suzy Mondragon MD [address] [place] [phone] PCP - General Family Medicine 04/09/21 documented as of this encounter
--- OUTSIDE RECORDS SUMMARY | 2025-09-13 02:21 | XMS_ITS | Encounter Summary ---
Author Organization [employer] [facility] Address [address] [place] [address] Care Team Providers Care Senior Business Consultant Name Role Phone Suzy Mondragon MD Primary Care Provider Encounter Details Date Type Department Care Team (Late st Contact Info) Description 04/06/2023 Abstract [facility] [address] [place] [phone] Suzy Mondragon MD [address] [place] [phone] Social History Tobacco Use Types Packs/Day Years [...] 3:00 PM EST Office Visit [facility] [address] [place] [phone] Terri Montague MD [address] [place] [address] documented as of this encounter Visit Diagnoses Not on filedocumented in this encounter Care Teams Senior Business Consultant Relationship Specialty Start Date End Date Suzy Mondragon MD [address] [place] [phone] PCP - General Family Medicine 04/09/21 documented as of this encounter
--- OUTSIDE RECORDS SUMMARY | 2025-09-13 02:21 | XMS_ITS | Encounter Summary ---
Author Organization [employer] [facility] Address [address] [place] [address] Care Team Providers Care Supervisor Slate Splitting Name Role Phone Suzy Mondragon MD Primary Care Provider [phone] Reason for Visit * Reason Comments Med Refill Encounter Details Date Type Department Care Team (Late st Contact Info) Description 05/25/2023 Refill [facility] [address] [place] [phone] Terri Montague MD [address] [place] [phone] Uncomplicated opioid dependence (CMS/HCC) Social History Tobacco [...] Description 10/02/2025 3:00 PM EST Office Visit [facility] [address] [place] [phone] Terri Montague MD [address] [place] [phone] documented as of this encounter Visit Diagnoses Diagnosis Uncomplicated opioid dependence (CMS/HCC) (HCC) documented in this encounter Care Teams Supervisor Slate Splitting Relationship Specialty Start Date End Date Suzy Mondragon MD [address] [place] [address] PCP - General Family Medicine 04/09/21 documented as of this encounter
--- OUTSIDE RECORDS SUMMARY | 2025-09-13 02:21 | XMS_ITS | Encounter Summary ---
Author Organization [employer] [facility] Address [address] [place] [address] Care Team Providers Care Sanitation Superintendent Name Role Phone Suzy Mondragon MD Primary Care Provider [phone] Reason for Visit * Reason Comments Med Refill Encounter Details Date Type Department Care Team (Late st Contact Info) Description 09/14/[address] [facility] [address] [place] [phone] Terri Montague MD [address] [place] [phone] Uncomplicated opioid dependence (CMS/HCC) Social History Tobacco [...] 3:00 PM EST Office Visit [facility] [address] [place] [phone] Terri Montague MD [address] [place] [phone] documented as of this encounter Visit Diagnoses Diagnosis Uncomplicated opioid dependence (CMS/HCC) (HCC) documented in this encounter Care Teams Sanitation Superintendent Relationship Specialty Start Date End Date Suzy Mondragon MD [address] [place] [address] PCP - General Family Medicine 04/09/21 documented as of this encounter
[2025-09-13 02:22] LABS: UPreg QC Valid YES
[2025-09-13 02:35] LABS: UACC Culture Trigger YES
[2025-09-13 03:14] LABS: Bacterial Vaginosis PCR NEGATIVE (Negative); Candida Group PCR NOT DETECTED (Not Detect); Candida glab krusei PCR NOT DETECTED (Not Detect); Trichomonas vaginalis PCR DETECTED (Not Detect)
[2025-09-13 03:46] LABS: CT PCR Urine NOT DETECTED (Not Detect.); NG PCR Urine NOT DETECTED (Not Detect.)
--- NOTE | 2025-09-13 04:06 | ED.FEMALEGU ---
HPI - Female Genitourinary General Chief complaint: Urogenital-Female Stated complaint: irritation when urinating Time Seen by Provider: 09/13/25 03:02 Source: patient Mode of arrival: ambulatory Limitations: no limitations History of Present Illness ED Provider: Dr. Maria Esther Ardon HPI Narrative: 34 year old female with history of recent UTI, completed antibiotics presents to the ED with 2 days of new vaginal discharge that began after intercourse 2 days ago. ? Describes dysuria and mild pruritus associated with the discharge. ? States she has a prior history of bacterial vaginosis but denies any prior sexually transmitted infections. ? Denies fever, hematuria, or vaginal bleeding. ? Last menstrual period reported as normal for her. ? Sexually active with one male partner; last intercourse 2 days ago. Partner is asymptomatic (no penile discharge or other symptoms). ? No chronic medical conditions reported; denies asthma. ? Smoker; endorses mild cough but no shortness of breath or fever. Related Data Home Medications ?Medication ?Instructions ?Recorded ?Confirmed buprenorphine 8 mg-naloxone 2 mg 1.5 film buccal DAILY 07/01/20 07/01/20 sublingual film (Suboxone) Previous Rx's ?Medication ?Instructions ?Recorded norelgestromin 150 mcg-e.estradiol 1 patch transdermal Q7D 3 weeks #9 08/04/23 35 mcg/24 hr weekly transderm ea patch (Xulane) nirmatrelvir 300 mg (150 mg See Rx Instructions PO .COMPLEX 08/28/23 x2)-ritonavir 100 mg tablet,dose #30 ea pack (Paxlovid) azithromycin 250 mg tablet 250 mg PO DAILY 4 days #4 tabs 12/21/23 (Zithromax) metronidazole 500 mg tablet 500 mg PO BID #14 tabs 09/13/25 Allergies Allergy/AdvReac Type Severity Reaction Status Date / Time amoxicillin Allergy Rash Verified 09/13/25 01:46 Review of Systems Review of Systems: as per HPI, full review of systems performed and negative but for the above mentioned pertinent positives and negatives. FOR[facility]LY [facility] Past Medical History Medical History ASCUS of cervix with negative high risk HPV Abnormal cervical Papanicolaou smear S/P extracorporeal shock wave therapy (~2008) Smoker GERD (gastroesophageal reflux disease) Depression H/O calculus of kidney during History of drug abuse Surgical History H/O cystoscopy (~2007) Family History Family History Father Diabetes Hypertension Mother Depression Social History Social History Household Members: Children Housing: Apartment Alcohol intake: never Patient Tobacco Use Status: Current everyday Tobacco user Cigarette Packs Per Day: 0.5 Cigarettes Per Day: 10.0 Years Smoked: 4 Advance Directives: No Advance Directives Information Provided: Yes Current occupational status: employed Current occupation: CONSUMER INSIGHT ANALYST Sexual orientation: Straight/Heterosexual Gender identity: Female Physical Exam Exam: Exam: GENERAL: Well-Appearing, conversant, no acute distress. SKIN: Normal skin color for ethnicity, warm, dry, no rashes noted. HEENT:? Normocephalic, atraumatic, no stridor, posterior oropharynx nonerythematous, dentition intact, EOMI. NECK: Soft, supple, full ROM, midline structures nontender, no step-offs, no deformities, no lymphadenopathy. CHEST: Heart regular rate and rhythm, no murmurs, symmetric chest rise and fall. PULMONARY: Clear to auscultation bilaterally, no labored breathing, no wheezes/rhales/rhonchi. ABDOMINAL: Soft, nondistended, suprapubic tenderness to palpation without rebound or guarding, positive bowel sounds in all quadrants. : Deferred. MUSCULOSKELETAL: Normal tone, full range of motion, no deformities, no peripheral edema. NEURO: Alert and oriented x3, CN II through XII intact, equal strength and sensation bilateral upper and lower extremities, no focal neurologic deficits.? PSYCHIATRIC: Normal affect, fluid speech, good eye contact and appropriate demeanor. Vital Signs: Vital Signs: Last Vital Signs Temp 97.3 F 09/13/25 04:14 Pulse 94 09/13/25 04:14 Resp 16 09/13/25 04:14 BP 119/64 09/13/25 04:14 Pulse Ox 99 09/13/25 04:14 O2 Del Method Room Air 09/13/25 04:14 BMI result Body Mass Index 21.3 Medications Administered Discontinued Medications Generic Name Dose Route Start Last Admin Trade Name Freq PRN Reason Stop Dose Admin Metronidazole 500 mg 09/13/25 04:05 09/13/25 04:13 Metronidazole 500 Mg Tablet PO 09/13/25 04:06 500 mg ONCE ONE Administration Medical Decision Making Medical Decision Making [facility] Narrative: This patient presents today with a chief complaint of suprapubic and vaginal pain pain. Differential diagnosis is broad and would include ovarian torsion, PID, TOA, if ectopic , pyelonephritis, kidney stone, UTI among many others. A broad-based workup based on history and physical exam was obtained Problem #1: Trichomoniasis Assessment: Confirmed Trichomonas vaginalis infection causing vaginal discharge, dysuria, and mild pruritus. Plan: Administer first dose of antibiotic (given in ED). Prescription for home: antibiotic to be taken BID for 7 days (pharmacy: [facility]). Advise patient to hold off on sexual activity until symptoms resolve and after completing the antibiotic course. Structures Assembler patient to notify current male partner to seek evaluation/treatment to prevent reinfection. Return to ED or PCP if symptoms worsen or do not improve after completing therapy. Problem #2: Cough with mild wheeze (likely irritative/bronchitis) Assessment: Mild wheeze on exam with cough; patient is a smoker; denies fever or dyspnea. Plan: Patient education: likely viral bronchitis vs smoker?s cough; no antibiotics indicated at this time. Encouraged to return if fever develops, breathing difficulty, trouble breathing, or symptoms worsen. Follow-up: Patient advised to follow up with primary care or return to ED as needed. Patient with symptomatic vulvovaginitis found to have Trichomonas infection on ED testing. Mild incidental wheeze noted on lung exam with cough, likely irritative from smoking/viral bronchitis. Differential Diagnosis Differential Diagnoses: The differential diagnosis associated with the presentation includes (as above) Lab Data [facility] Lab Attestation statement: I reviewed the patient's lab results. Labs: Lab Results 09/13/25 Range/Units 02:05 Urine Color Yellow Urine Appearance Clear Urine pH 5.5 (5.0-9.0) Ur Specific [place] 1.025 (1.005-1.025) Urine Protein 30 (1+) H (Neg-Trace) mg/dL Urine Glucose (UA) Negative (Negative) mg/dL Urine Ketones Trace (Negative) mg/dL Urine Blood Negative (Negative) Urine Nitrite Negative (Negative) Ur Leukocyte Esterase Moderate (2+) H (Negative) Urine RBC 0-2 (0-2) /HPF Urine WBC 11-20 H (0-5) /HPF Ur Squamous Epith Cells 3-5 (0-2) /HPF Urine Bacteria 1+ (None Seen) Hyaline Casts 0-2 (0-2) /LPF Urine Test NEGATIVE (NEGATIVE) Ur N gonorrhoeae DNA (PCR) NOT DETECTED (Not Detect.) Ur Chlamydia DNA (PCR) NOT DETECTED (Not Detect.) T. vaginalis (PCR) DETECTED A (Not Detect) Bact vaginosis (PCR) NEGATIVE (Negative) C. krusei/glabrata (PCR) NOT DETECTED (Not Detect) Laly group (PCR) NOT DETECTED (Not Detect) External Record Review External record reviewed: Inpatient record Prescription Management I considered prescription management with: Antibiotic Social Determinants Patient?s care significantly limited by Social Determinants of Health including: Other Social Determinant of Health Discharge Plan Discharge Clinical Impression: Trichomoniasis Patient Disposition: Home, Self-Care Instructions: Trichomoniasis (ED) Additional Instructions: Your sexual partners should also be treated with metronidazole for this infection. Return to the ER with any new or worsening symptoms including: Fevers greater than 100?, chest pain, difficulty breathing, inability to tolerate your antibiotic, any new symptom that concerns you. Call 911 with any medical emergency. Prescriptions: New metronidazole 500 mg tablet 500 mg PO BID Qty: 14 0RF No Action buprenorphine-naloxone [Suboxone] 8-2 mg Film 1.5 film BUCCAL DAILY azithromycin [Zithromax] 250 mg tablet 250 mg PO DAILY 4 Days Qty: 4 0RF Rx Instructions: start on day 2 of therapy Paxlovid 300 mg (150 mg x 2)-100 mg tablets,dose pack See Rx Instructions .ROUTE .COMPLEX Qty: 30 0RF Rx Instructions: take TWO 150 mg tablets of nirmatrelvir with ONE 100 mg tablet of ritonavir twice daily for 5 days Xulane 150-35 mcg/24 hr patch weekly 1 patch transdermal Q7D 21 Days Qty: 9 4RF Interventions: ED Discharge Assessment Last Done: 09/13/25 04:14 Discharge Date/Time: 09/13/25 04:15 Print Language: [place]
[2025-09-13 04:14] VITALS: BP 119/64; PULSE 94; RESP 16; TEMP 36.3; O2SAT 99
== END 2025-09-13 04:15 | disposition home or self-care (01) ==
PROVIDERS: Nurse Practitioner Family; Emergency Provider Emergency Medicine; PCP General Practice
DX: A59.01 Trichomonal vulvovaginitis (principal); N89.8 Other specified noninflammatory disorders of vagina; R10.24 Suprapubic pain; F17.210 Nicotine dependence, cigarettes, uncomplicated
CPT/HCPCS: 81001; 81025; 81515; 87086; 87491; 87591; 99282; 99283